=== PATIENT | female | born 1960 | race Caucasian/White ===

== ENCOUNTER 2017-06-18 11:07 | Emergency (ER) | payer BC, OTHER ==
[~2017-06-18] VITALS: Ht 170.2 cm; Wt 107.1 kg
[~2017-06-18 11:07] MED LIST: IBUP-103 PO; LEVO200T PO
[2017-06-18 11:21] VITALS: TEMP 36.6; Ht 170.2 cm; Wt 107.1 kg
[2017-06-18] MEDS ORDERED: ACET-1256 PO (11:57)
[2017-06-18] MEDS ORDERED: LEVO175T PO (11:57)
[2017-06-18 12:40] VITALS: O2SAT 96
--- NOTE | 2017-06-18 12:41 | EMERGENCY ROOM VISIT NOTE ---
History Report prepared by Danilo: Pasquale Ely Under the Supervision of: Dr. Walker Rogers M.D. First contact with patient: 11:51 Chief Complaint: SHORTNESS OF BREATH Stated Complaint: LUMP IN NECK AND DISCOMFORTED BREATHING Nursing Triage Summary: Pt reports swelling to upper chest x 1 month. "When I cough or get excited I get more sob. I don't have any trouble swallowing. When I expel a lot of air I start coughing. It just feels like a pressure where it is swollen, but it doesn't hurt. I do have pain between my shoulder blades." Hx of breast cancer in 2009. History of Present Illness The patient is a 57 year old female who presents to the Emergency Room with complaints of a worsening area of swelling to her upper mid chest that began 1 month ago. She has a past medical history of breast cancer diagnosed in 2009 with a lumpectomy that was treated with chemotherapy and radiation. Over this time, the patient noticed that there is an area to her chest that has been growing in size. She denies any pain to this area. Associated with this, the patient has been feeling short of breath as well. Whenever the patient gets excited or coughs, her shortness of breath worsens. She is also having a pain to her back in between her shoulder blades. She has not had a breast exam for the past two years and is due for one. She denies any fevers or other symptoms at this time. Source of History: patient Onset: 1 month ago Position: chest (upper mid) Symptom Intensity: moderate Quality: other (Area of swelling) Timing: worsening Associated Symptoms: + SOB, + back pain (between shoulder blades), No fevers , No chest pain Review of Systems See HPI for pertinent positives & negatives. A total of 10 systems reviewed and were otherwise negative. Past Medical & Surgical Medical Problems: (1) Hx Of Breast Malignancy (2) Hypothyroidism Family History Patient reports no known family medical history. Social History Smoking Status: Current Every Day Smoker Smokeless Tobacco Use: No Drug Use: none Current/Historical Medications Scheduled Levothyroxine Sodium (Synthroid), 175 MCG PO DAILY Lidocaine (Lidocaine), 1 PATCH TD DAILY Scheduled PRN Acetaminophen (Tylenol), 1,000 MG PO Q4 PRN for Pain Oxycodone Immediate Rel Tab (Roxicodone Ir), 1-2 TAB PO Q4H PRN for Severe Pain Allergies Coded Allergies: No Known Allergies (Unverified , 06/18/17) Physical Exam Vital Signs Date Time Temp Pulse Resp B/P (MAP) Pulse Ox O2 Delivery O2 Flow Rate FiO2 06/18/17 14:16 82 20 169/98 99 06/18/17 12:50 74 20 148/87 97 Room Air 06/18/17 12:40 96 Room Air 06/18/17 12:21 74 06/18/17 11:21 36.6 85 18 162/82 96 Room Air Physical Exam GENERAL: Patient is a healthy-appearing well-nourished female HEAD: Normocephalic atraumatic EYES: Ocular movements intact pupils equal and react to light OROPHARYNX mucous membranes are moist no exudates present no erythema or edema present NECK: Supple no nuchal rigidity CHEST: Good equal expansion. There is a palpable mass to the chest wall. Old scar tissue to the right breast. LUNGS: Clear and equal to auscultation CARDIAC: Normal S1 and S2 ABDOMEN: Soft nontender no guarding BACK: No CVA tenderness EXTREMITIES: No pain upon palpation normal muscle strength in all groups no clubbing cyanosis or edema NEURO: Patient is following commands and answering questions appropriately. Alert and oriented x3 Cranial Nerves 2-12 grossly intact Medical Decision & Procedures ER Provider Diagnostic Interpretation: Radiology results as stated below per my review and radiologist interpretation: THORACIC SPINE WITHOUT CLINICAL HISTORY: 57 years-old Female presenting with Pt c/o T6 pain, upper back pain, history cancer. TECHNIQUE: Multidetector CT of the thoracic spine was performed without the use of intravenous contrast. IV contrast: None. A dose lowering technique was used consistent with the principles of ALARA (as low as reasonably achievable). COMPARISON: None. CT DOSE (mGy.cm): The estimated cumulative dose is 638.43. FINDINGS: Tower Control Operator topogram: Unremarkable. Normal thoracic kyphosis. Osteolytic changes of T3-T5. Mild anterior vertebral body height loss of T4, which is somewhat eccentrically more significant along the right aspect of the T4 vertebral body (series 500 image 28). Remaining vertebral bodies in the thoracic spine are grossly normal in appearance without lytic change. Vertebral bodies otherwise maintain normal height and alignment. Intervertebral disc spaces preserved. No osseous neural foraminal or spinal canal narrowing. Paraspinal soft tissues within normal limits. Trace apical emphysema. Dependent changes likely atelectasis. IMPRESSION: 1. Osteolytic changes in T3-T5 are highly suspicious for metastatic disease. 2. Right eccentric anterior vertebral body height loss at T4 consistent with a pathologic compression deformity. 3. CT may underestimate the extent of metastatic disease. Further evaluation with contrast-enhanced MR of the thoracic spine could be considered. 4. No osseous neural foraminal or spinal canal narrowing. The report will be called/faxed according to standard departmental protocol. Electronically signed by: Chano Esteban M.D. 06/18/2017 1:15 PM Dictated Date/Time: 06/18/2017 1:09 PM (CHEST FOR PE) ANGIO WITH CT DOSE: 638.43 mGy.cm HISTORY: Pain. Edema. TECHNIQUE: Multiaxial CT images of the chest were performed following the intravenous administration of contrast to evaluate the pulmonary arteries. Maximal intensity projection images were also obtained. A dose lowering technique was utilized adhering to the principles of ALARA. COMPARISON STUDY: 01/19/2010 FINDINGS: The thoracic aorta is negative for aneurysm or dissection. Pulmonary arterial vasculature enhances appropriately. Large obstructive soft tissue mass eroding the bulk of the sternum from the sternomanubrial junction inferior to the inferior sternal level. This destructive mass is associated with a pericardial effusion with a maximum thickness of 11 mm. Is also associated with a soft tissue mass extending to the anterior mediastinum with dimensions are approximately 4 x 4 centimeters in terms of cross-section and extending from the superior to inferior length of the sternum. This is highly suspicious for anterior mediastinal invasion. There is moderate subcarinal adenopathy. There is skin thickening overlying the right breast. There are findings of erosive changes involving the upper thoracic spine from T3 through T6. There is a soft tissue mass around the vertebral column at this site. No definite erosive changes to the spinal canal are present. The lung parenchyma shows no significant nodularity. Subtle nodularity along the right major fissure is present. A dominant mass although not noted is not appreciated. IMPRESSION: 1. No evidence for pulmonary embolus. 2. Lungs are clear. 3. Destructive process involving the bulk of the sternum with an associated soft tissue mass extending to the anterior mediastinum. 4. Lytic changes involving the superior thoracic spine from T3 through T6 with a peripheral rind of abnormal soft tissue surrounding the involved vertebral bodies. 5. No significant involvement of the spinal canal based on CT criteria. 6. Pericardial effusion with a maximum thickness of 11 mm. 7. Skin thickening of the right breast possibly on a post therapeutic basis. 8. This appearance is most consistent with that of a metastatic process. The above report was generated using voice recognition software. It may contain grammatical, syntax or spelling errors. Electronically signed by: Marvin Marcelino M.D. 06/18/2017 1:31 PM Dictated Date/Time: 06/18/2017 1:06 PM Laboratory Results 06/18/17 11:45 Red Blood Count 4.65, Mean Corpuscular Volume 95.5, Mean Corpuscular Hemoglobin 33.5, Mean Corpuscular Hemoglobin Concent 35.1, Mean Platelet Volume 11.5, Neutrophils (%) (Auto) 70.5, Lymphocytes (%) (Auto) 21.2, Monocytes (%) (Auto) 7.1, Eosinophils (%) (Auto) 0.8, Basophils (%) (Auto) 0.2, Neutrophils # (Auto) 6.28, Lymphocytes # (Auto) 1.89, Monocytes # (Auto) 0.63, Eosinophils # (Auto) 0.07, Basophils # (Auto) 0.02 06/18/17 11:45 Test 06/18/17 11:45 06/18/17 12:48 06/18/17 12:50 White Blood Count 8.91 K/uL (4.8-10.8) Red Blood Count 4.65 M/uL (4.2-5.4) Hemoglobin 15.6 g/dL (12.0-16.0) Hematocrit 44.4 % (37-47) Mean Corpuscular Volume 95.5 fL (80-100) Mean Corpuscular Hemoglobin 33.5 pg (25-34) Mean Corpuscular Hemoglobin Concent 35.1 g/dl (32-36) Platelet Count 253 K/uL (130-400) Mean Platelet Volume 11.5 fL (7.4-10.4) Neutrophils (%) (Auto) 70.5 % Lymphocytes (%) (Auto) 21.2 % Monocytes (%) (Auto) 7.1 % Eosinophils (%) (Auto) 0.8 % Basophils (%) (Auto) 0.2 % Neutrophils # (Auto) 6.28 K/uL (1.4-6.5) Lymphocytes # (Auto) 1.89 K/uL (1.2-3.4) Monocytes # (Auto) 0.63 K/uL (0.11-0.59) Eosinophils # (Auto) 0.07 K/uL (0-0.5) Basophils # (Auto) 0.02 K/uL (0-0.2) RDW Standard Deviation 45.7 fL (36.4-46.3) RDW Coefficient of Variation 13.1 % (11.5-14.5) Immature Granulocyte % (Auto) 0.2 % Immature Granulocyte # (Auto) 0.02 K/uL (0.00-0.02) Est Creatinine Clear Calc Drug Dose 89.0 ml/min Estimated GFR () 83.4 Estimated GFR (Non- 72.0 BUN/Creatinine Ratio 16.9 (10-20) Calcium Level 9.6 mg/dl (8.5-10.1) Total Bilirubin 0.4 mg/dl (0.2-1) Aspartate Amino Transf (AST/SGOT) 21 U/L (15-37) Alanine Aminotransferase (ALT/SGPT) 27 U/L (12-78) Alkaline Phosphatase 86 U/L (45-117) Total Protein 7.8 gm/dl (6.4-8.2) Albumin 3.9 gm/dl (3.4-5.0) Globulin 3.9 gm/dl (2.5-4.0) Albumin/Globulin Ratio 1.0 (0.9-2) Bedside Hemoglobin 15.0 g/dl (12.0-16.0) Bedside Hematocrit 44 % (37-47) Bedside Sodium 140 mEq/L (135-144) Bedside Potassium 5.0 mEq/L (3.3-5.0) Bedside Chloride 102 mEq/L (101-112) Bedside Total CO2 28 mEq/l (24-31) Anion Gap 16.0 mmol/L (16-25) Bedside Blood Urea Nitrogen 27 mg/dl (7-18) Bedside Creatinine 0.9 mg/dl (0.6-1.3) Bedside Glucose (other) 98 mg/dl (70-99) Bedside Ionized Calcium (Luis Miguel) 1.18 mmol/l (1.12-1.32) Urine Color YELLOW Urine Appearance CLEAR (CLEAR) Urine pH 6.5 (4.5-7.5) Urine Specific [place] 1.010 (1.000-1.030) Urine Protein NEG (NEG) Urine Glucose (UA) NEG (NEG) Urine Ketones NEG (NEG) Urine Occult Blood NEG (NEG) Urine Nitrite NEG (NEG) Urine Bilirubin NEG (NEG) Urine Urobilinogen NEG (NEG) Urine Leukocyte Esterase NEG (NEG) Labs reviewed by ED physician. Medications Administered Medications (Trade) Dose Ordered Sig/Ledy Route Start Time Stop Time Status Last Admin Dose Admin Lidocaine (Lidoderm Patch 5%) 1 patch NOW STAT TD 06/18/17 13:57 06/18/17 13:58 DC 06/18/17 14:11 1 PATCH ECG Indication: SOB/dyspnea Rate (beats per minute): 82 Rhythm: normal sinus Findings: no acute ischemic change, no ectopy Change: Patient's electrocardiogram per my interpretation. ED Course 1151: Past medical records reviewed. The patient was evaluated in room C9. A complete history and physical examination was performed. 1350: I spoke with Dr. Parnell of Oncology at this time. They will follow up with the patient closely in the near future. 1357: Ordered Lidocaine 1 patch TD 1415: Upon reexamination the patient is resting. I discussed results and treatment plan with the patient. She verbalizes agreement and understanding. The patient is ready for discharge. Medical Decision Differential diagnosis: Etiologies such as infections, reactive airway disease, pneumonia, pneumothorax , COPD, CHF, cardiac ischemia, pulmonary embolism, musculoskeletal, gastrointestinal, as well as others were entertained. This is a 57-year-old female who presents emergency department complaining of a lump in her chest wall. The patient does have a history of breast cancer however has not had a breast exam 2 years. She was given Lidoderm patch in the emergency department. Due to the nature of the patient's history as well as her physical exam findings she was sent for CAT scan of the chest as well as the spine. This was concerning for diffuse metastatic disease. I had a discussion with the patient over the gravity of her situation and offered her admission however she wishes to be discharged home. Based on this I did discuss the case with the oncologist on-call who agreed to see the patient MARY. The patient will be given oxycodone for pain as well as Lidoderm patches. Medication Reconcilliation Current Medication List: was personally reviewed by me Blood Pressure Screening Patient's blood pressure: Elevated blood pressure Blood pressure disposition: Referred to PCP Consults Time Called: 1345 Consulting Physician: Dr. Parnell - Oncology Returned Call: We discussed the patient's case. They will follow up with the patient closely in the near future. Impression Primary Impression: Compression fracture Scribe Attestation The scribe's documentation has been prepared under my direction and personally reviewed by me in its entirety. I confirm that the note above accurately reflects all work, treatment, procedures, and medical decision making performed by me. Departure Information Dispostion Home / Self-Care Prescriptions Oxycodone Immediate Rel Tab (ROXICODONE IR) 5 Mg Tab 1-2 TAB PO Q4H Y for Severe Pain, #24 TAB Prov: Walker Rogers MD 06/18/17 Lidocaine (Lidocaine) 1 Patch Tdsy 1 PATCH TD DAILY for 30 Days, #30 PATCH Prov: Walker Rogers MD 06/18/17 Referrals Supriya Chin M.D. (PCP) Forms HOME CARE DOCUMENTATION FORM, IMPORTANT VISIT INFORMATION, School Instructions, Work Instructions Patient Instructions ED Fx Comp Vertebral, My [facility] Additional Instructions NEED close follow up with Dr Parnell's office You received narcotic or benzodiazepene medication while in the emergency room today. This is an addictive medication that may cause drowziness as well as constipation. Do not drive, operate heavy machinery, or drink alcohol under the influence of this medication. Take 1000 mg Tylenol every 6 hours Take Oxy IR for breakthrough pain You have been examined and treated today on an emergency basis only. This is not a substitute for, or an effort to provide, complete comprehensive medical care. It is impossible to recognize and treat all injuries or illnesses in a single emergency department visit. It is therefore important that you follow up closely with Dr Chin. Call as soon as possible for an appointment. Thank you for your time and consideration. I look forward to speaking with you again soon. Please don't hesitate to call us if you have any questions.
[2017-06-18] MEDS ORDERED: OPTIRAY 320 IV PRN (12:45)
[2017-06-18 13:00] LABS: ISTAT CREATININE 0.9 mg/dl (0.6-1.3); ISTAT IONIZED CALCIUM 1.18 mmol/l (1.12-1.32)
--- NOTE | 2017-06-18 13:17 | DIAGNOSTIC IMAGING REPORT ---
THORACIC SPINE WITHOUT CLINICAL HISTORY: 57 years-old Female presenting with Pt c/o T6 pain, upper back pain, history cancer. TECHNIQUE: Multidetector CT of the thoracic spine was performed without the use of intravenous contrast. IV contrast: None. A dose lowering technique was used consistent with the principles of ALARA (as low as reasonably achievable). COMPARISON: None. CT DOSE (mGy.cm): The estimated cumulative dose is 638.43. FINDINGS: Director Cardiovascular topogram: Unremarkable. Normal thoracic kyphosis. Osteolytic changes of T3-T5. Mild anterior vertebral body height loss of T4, which is somewhat eccentrically more significant along the right aspect of the T4 vertebral body (series 500 image 28). Remaining vertebral bodies in the thoracic spine are grossly normal in appearance without lytic change. Vertebral bodies otherwise maintain normal height and alignment. Intervertebral disc spaces preserved. No osseous neural foraminal or spinal canal narrowing. Paraspinal soft tissues within normal limits. Trace apical emphysema. Dependent changes likely atelectasis. IMPRESSION: 1. Osteolytic changes in T3-T5 are highly suspicious for metastatic disease. 2. Right eccentric anterior vertebral body height loss at T4 consistent with a pathologic compression deformity. 3. CT may underestimate the extent of metastatic disease. Further evaluation with contrast-enhanced MR of the thoracic spine could be considered. 4. No osseous neural foraminal or spinal canal narrowing. The report will be called/faxed according to standard departmental protocol. Electronically signed by: Chano Esteban M.D. 06/18/2017 1:15 PM Dictated Date/Time: 06/18/2017 1:09 PM
[2017-06-18 13:22] LABS: BASO % 0.2 %; BASO ABS # 0.02 K/uL (0-0.2); EOS % 0.8 %; EOS ABS # 0.07 K/uL (0-0.5); HEMATOCRIT 44.4 % (37-47); HEMOGLOBIN 15.6 g/dL (12.0-16.0); IG# 0.02 K/uL (0.00-0.02); LYMPH % 21.2 %; LYMPH ABS # 1.89 K/uL (1.2-3.4); MEAN CELL VOLUME 95.5 fL (80-100); MEAN CORPUSCULAR HEMOGLOBIN 33.5 pg (25-34); MEAN CORPUSCULAR HGB CONC 35.1 g/dl (32-36); MEAN PLATELET VOLUME 11.5 fL (7.4-10.4); MONO % 7.1 %; MONO ABS # 0.63 K/uL (0.11-0.59); NEUT % 70.5 %; NEUT ABS # 6.28 K/uL (1.4-6.5); PLATELET COUNT 253 K/uL (130-400); RED CELL DISTRIBUTION WIDTH CV 13.1 % (11.5-14.5); RED CELL DISTRIBUTION WIDTH SD 45.7 fL (36.4-46.3); WHITE BLOOD COUNT 8.91 K/uL (4.8-10.8)
[2017-06-18 13:30] LABS: ALBUMIN 3.9 gm/dl (3.4-5.0); CALCIUM 9.6 mg/dl (8.5-10.1); CREATININE 0.9 mg/dl (0.60-1.20); POTASSIUM 4.1 mmol/L (3.5-5.1)
--- NOTE | 2017-06-18 13:32 | DIAGNOSTIC IMAGING REPORT ---
(CHEST FOR PE) ANGIO WITH CT DOSE: 638.43 mGy.cm HISTORY: Pain. Edema. TECHNIQUE: Multiaxial CT images of the chest were performed following the intravenous administration of contrast to evaluate the pulmonary arteries. Maximal intensity projection images were also obtained. A dose lowering technique was utilized adhering to the principles of ALARA. COMPARISON STUDY: 01/19/2010 FINDINGS: The thoracic aorta is negative for aneurysm or dissection. Pulmonary arterial vasculature enhances appropriately. Large obstructive soft tissue mass eroding the bulk of the sternum from the sternomanubrial junction inferior to the inferior sternal level. This destructive mass is associated with a pericardial effusion with a maximum thickness of 11 mm. Is also associated with a soft tissue mass extending to the anterior mediastinum with dimensions are approximately 4 x 4 centimeters in terms of cross-section and extending from the superior to inferior length of the sternum. This is highly suspicious for anterior mediastinal invasion. There is moderate subcarinal adenopathy. There is skin thickening overlying the right breast. There are findings of erosive changes involving the upper thoracic spine from T3 through T6. There is a soft tissue mass around the vertebral column at this site. No definite erosive changes to the spinal canal are present. The lung parenchyma shows no significant nodularity. Subtle nodularity along the right major fissure is present. A dominant mass although not noted is not appreciated. IMPRESSION: 1. No evidence for pulmonary embolus. 2. Lungs are clear. 3. Destructive process involving the bulk of the sternum with an associated soft tissue mass extending to the anterior mediastinum. 4. Lytic changes involving the superior thoracic spine from T3 through T6 with a peripheral rind of abnormal soft tissue surrounding the involved vertebral bodies. 5. No significant involvement of the spinal canal based on CT criteria. 6. Pericardial effusion with a maximum thickness of 11 mm. 7. Skin thickening of the right breast possibly on a post therapeutic basis. 8. This appearance is most consistent with that of a metastatic process. The above report was generated using voice recognition software. It may contain grammatical, syntax or spelling errors. Electronically signed by: Marvin Marcelino M.D. 06/18/2017 1:31 PM Dictated Date/Time: 06/18/2017 1:06 PM
[2017-06-18 13:35] LABS: TOTAL PROTEIN 7.8 gm/dl (6.4-8.2)
[2017-06-18] MEDS ORDERED: LIDODERM (LIDOCAINE) PATCH 5% TD STA (13:57)
[2017-06-18] MEDS ORDERED: LDDP5 TD (14:00)
[2017-06-18] MEDS ORDERED: OXYC1TAB3 PO (14:00)
[2017-06-18 14:16] VITALS: BP 169/98; PULSE 82; O2SAT 99
== END 2017-06-18 14:18 | disposition home or self-care (01) ==
LOC: C.EDB 11:09 → C.EDC 14:18
DX: M84.48XA Pathological fracture, other site, initial encounter for fracture (principal); Z85.3 Personal history of malignant neoplasm of breast; E03.9 Hypothyroidism, unspecified; F17.210 Nicotine dependence, cigarettes, uncomplicated; Z79.899 Other long term (current) drug therapy

== ENCOUNTER → 2017-07-03 | Outpatient (CLI) | payer BC ==
[~2017-07-03] MED LIST changes: +ACET-1256 PO; -IBUP-103 PO; +IBUP-1450 PO; +LDDP5 TD; +LEVO175T PO; -LEVO200T PO
--- NOTE | 2017-07-03 14:22 | DIAGNOSTIC IMAGING REPORT ---
PET/CT CLINICAL HISTORY: Breast cancer. TECHNIQUE: A PET/CT was performed from the skull base through the upper thighs following intravenous injection of 11.23 mCi of F 18 FDG IV. The injection was performed at 8:29 AM on July 03, 2017 and imaging began at 9:21 AM on July 03, 2017. Unenhanced CT was performed for attenuation correction purposes and anatomic localization. COMPARISON STUDY: Chest CT and CT of the thoracic spine June 18, 2017. FINDINGS: Head and neck: Note is made of moderate FDG uptake within a nonenlarged left level 3 lymph node shown on image 43. This node measures 8 mm and has an SUV max of 5.6. A nonenlarged left supraclavicular lymph node shown on image 48 measures 1 cm and has an SUV max of 3.2. Chest: A 8 mm paratracheal node shown image 66 has an SUV max of 10.2. Extensive bony destruction of the entirety of the sternum and multiple bilateral anterior ribs is noted. This is due to an infiltrative FDG avid mass with extension into the anterior mediastinum. There is right breast asymmetric skin thickening with mild FDG uptake within SUV max of 2.4. There is also asymmetric radiotracer uptake within the right breast tissue with an SUV max of 2.4. No discrete right breast masses are identified by PET/CT. There are trace bilateral pleural effusions. A moderate-sized pericardial effusion is unchanged since chest CT of June 18, 2017. This is no significant FDG uptake. Abdomen and Pelvis: A 2.3 cm hypodense right hepatic lobe lesion has no FDG uptake. Therefore, this is probably benign. There is moderate to marked uptake projecting over the distal rectum and anus within SUV max of 7.8. A corresponding abnormality is not identified by CT although CT is decreased sensitivity for detection of mucosal lesions. Musculoskeletal: Extensive bony destruction of the entirety of the sternum and multiple bilateral anterior ribs is noted. FDG avid soft tissue is noted anterior and posterior to the sternum with mediastinal extension. SUV max of this infiltrative mass is 15.4. FDG avid lytic lesions are noted within the lower cervical and upper thoracic spine with resultant pathologic fractures of T3, T4 and T5. There is abnormal FDG uptake within the C7, T1, T2, T3, T4, T5 and T6 vertebra with an SUV max of 12.8. There is suspected epidural extension of tumor which is suboptimally assessed by PET. IMPRESSION: 1. Findings consistent with extensive FDG avid metastatic disease with bony destruction of the entirety of the sternum and multiple anterior bilateral ribs. Infiltrative tumor extends into the anterior mediastinum with associated mediastinal, supraclavicular and lower cervical lymphadenopathy consistent with mindi spread of disease. 2. Abnormal FDG uptake with multiple lytic lesions consistent with metastases within the C7-T6 vertebra with suspected epidural extension of tumor at the upper thoracic levels. 3. No change in a moderate size pericardial effusion since chest CT of June 18, 2017. This effusion has no significant FDG uptake. Trace bilateral pleural effusions. 4. Asymmetric right breast thickening with mild FDG uptake within the skin and right breast tissue. This favors postradiation change. Inflammatory breast cancer is within the differential although considered less likely given the mild degree of FDG uptake. 5. Moderate to marked focal uptake within the distal rectum and anus which is nonspecific and could be correlated with physical examination to exclude a mucosal lesion. Electronically signed by: Xavier Chin M.D. 07/03/2017 2:20 PM Dictated Date/Time: 07/03/2017 11:28 AM
== END | disposition home or self-care (01) ==
LOC: C.PET 07:38
PROVIDERS: ATTEND Radiology Radiation Oncology
DX: C50.119 Malignant neoplasm of central portion of unspecified female breast (principal); M89.8X0 Other specified disorders of bone, multiple sites; J98.59 Other diseases of mediastinum, not elsewhere classified; R59.0 Localized enlarged lymph nodes; N64.59 Other signs and symptoms in breast

== ENCOUNTER 2017-07-05 09:16 | Day surgery (SDC) | payer BC ==
[~2017-07-05] VITALS: Ht 169.5 cm; Wt 106.5 kg
[2017-07-05 09:46] VITALS: BP 157/82; PULSE 75; TEMP 36.6; O2SAT 98; Ht 169.5 cm; Wt 106.5 kg
[2017-07-05 10:33] LABS: PLATELET COUNT 236 K/uL (130-400)
[2017-07-05 10:44] LABS: PTT PATIENT 29.2 SECONDS (21.0-31.0)
[2017-07-05 11:55] VITALS: BP 132/76; PULSE 68; TEMP 36.4; O2SAT 94
--- NOTE | 2017-07-05 12:01 | Discharge Instructions ---
Discharge Instructions Procedure Procedure Date: Jul 05, 2017. Reason for visit: Sternal Mass. Discharge Discharge Date: Jul 05, 2017. Discharge Diagnosis: same Instructions Activity Recommendations: No limitations Return to School/Work: no limitations Recommended Home Diet: Resume Previous Diet Provider Instructions: ACTIVITY RECOMMENDATIONS: * Rest today. * Resume regular activity in one day. MEDICATIONS: * May take Tylenol or Ibuprofen as needed for pain. DIET: * Resume previous diet. SPECIAL CARE INSTRUCTIONS: Call your doctor if: * Temperature above 101 degrees F. * Pain not relieved by pain medicine ordered. * Increased drainage or redness from incision. * Notify your doctor with any questions or concerns. Call your doctor or go to the nearest Emergency Department if you experience: * Increased chest pain or shortness of breath. FOLLOW UP VISIT: Follow-up with Referring Physician as scheduled. Allergies Coded Allergies: No Known Allergies (Unverified , 07/05/17) Rudy You Recommendations: Call your doctor if: * Temperature above 101 degrees * Pain not relieved by pain medicine ordered * There is increased drainage or redness from any incision * You have any unanswered questions or concerns. Your Doctors Instructions noted above were prepared by provider Cb Tobias. Patient Signature Section: Patient Instructions Signature Page Linh Valladares Patient (or Guardian) Signature/Date: I have read and understand the instructions given to me by my caregivers. Caregiver/RN/Doctor Signature/Date: The above-named patient and/or guardian has received patient instructions on this date. + Original Patient Signature Page (only) stays with chart. Please make copy for patient.
--- NOTE | 2017-07-05 12:21 | DIAGNOSTIC IMAGING REPORT ---
ULTRASOUND-GUIDED FINE-NEEDLE ASPIRATION OF A STERNAL MASS HISTORY: STERNAL MASS COMPARISON: PET CT 07/03/2017. PROCEDURE: Written informed consent was obtained. The neck was prepped and draped in the usual sterile fashion. 1% lidocaine was used for local anesthesia. A total of 2 passes using a 22-gauge Sharyn needle and a 25-gauge needle were made through sternal mass under ultrasound guidance. Specimens were given to the on-site pathologist who determined adequate tissue for diagnosis. The patient tolerated the procedure well. There were no immediate complications. IMPRESSION: Successful ultrasound-guided fine-needle aspiration of a sternal mass. Electronically signed by: Cb Tobias M.D. 07/05/2017 12:20 PM Dictated Date/Time: 07/05/2017 12:19 PM
== END 2017-07-05 12:04 | disposition home or self-care (01) ==
LOC: C.ACU 09:16
PROVIDERS: ATTEND Physician Assistant Medical
DX: C79.51 Secondary malignant neoplasm of bone (principal); C50.919 Malignant neoplasm of unspecified site of unspecified female breast; Z17.0 Estrogen receptor positive status [ER+]

== ENCOUNTER 2017-08-05 05:00 | Day surgery (SDC) | payer BC ==
[2017-08-02 10:44] VITALS: BMI 36.0
[~2017-08-05] VITALS: Ht 169.5 cm; Wt 104.5 kg
[~2017-08-05 05:00] MED LIST changes: -BUPIVACAINE 0.5 % 5 MG/1 ML MPF 30ML VIAL ONE; -DXM/4 PO; -FENTANYL CITRATE INJ 50 MCG/1 ML 2 ML VIAL ONE; -HEPARIN SOD (PORCINE) 1000 UNIT/ML 10 ML VIAL ONE; -KETOROLAC TROMETHAMINE 30 MG/ML VIAL ONE; -LIDOCAINE/EPINEPHRINE 1% 20 ML VIAL ONE; -LORA-741 PO; -ONDANSETRON INJ 2 MG/ML 2 ML VIAL ONE; -OXYC1TAB3 PO; -[UNRECOGNIZED DRUG - CODE] IV
[2017-08-05] MEDS ORDERED: LORA-741 PO (05:40)
[2017-08-05] MEDS ORDERED: DXM/4 PO (05:40)
[2017-08-05] MEDS ORDERED: [UNRECOGNIZED DRUG - CODE] IV (05:40)
[2017-08-05 05:41] VITALS: BP 149/86; PULSE 83; TEMP 36.6; O2SAT 95; Ht 169.5 cm; Wt 104.5 kg
[2017-08-05] MEDS ORDERED: CEFAZOLIN 2000MG IV PUSH 15 ML IV SCH (06:00)
[2017-08-05] MEDS ORDERED: LACTATED RINGER'S 1000ML 1,000 ML IV SCH (06:00)
[2017-08-05] MEDS ORDERED: FENTANYL CITRATE INJ 50 MCG/1 ML 2 ML VIAL ONE (06:38)
[2017-08-05] MEDS ORDERED: MIDAZOLAM HCL 1 MG/ML 2ML VIAL ONE (06:39)
[2017-08-05] MEDS ORDERED: PROPOFOL IV EMULSION 10 MG/ML 20 ML VIAL IV ONE ×2 (06:43→08:21)
[2017-08-05] MEDS ORDERED: LIDOCAINE HCL 2% 2 ML VIAL (20MG/ML) ONE (06:43)
--- NOTE | 2017-08-05 06:58 | History & Physical Bridge Note ---
H&P Re-Evaluation Bridge Note: I have examined the patient, reviewed the History & Physical and in the interval since the performance of the History & Physical I have noted the following changes of clinical significance: No changes noted
[2017-08-05] MEDS ORDERED: LIDOCAINE/EPINEPHRINE 1% 20 ML VIAL TOP ONE (07:55)
[2017-08-05] MEDS ORDERED: BUPIVACAINE 0.5 % 5 MG/1 ML MPF 30ML VIAL INJ ONE (07:56)
[2017-08-05] MEDS ORDERED: HEPARIN SOD (PORCINE) 1000 UNIT/ML 10 ML VIAL IRRIG ONE (07:56)
--- NOTE | 2017-08-05 08:06 | [facility] Post Operative Brief Note ---
Immediate Operative Summary Operative Date Aug 05, 2017. Pre-Operative Diagnosis Breast Cancer Post-Operative Diagnosis Same as preop Procedure(s) Performed Insertion of Mediport with Fluoroscopy Internal Jugular Left Surgeon Respiratory Therapist Surgeon(s) None Estimated Blood Loss 6ML Findings Consistent with Post-Op Diagnosis Left IJV port placement Specimens None per surgeon Drains None Anesthesia Type MAC Complication(s) none Disposition Accompanied Pt To Recover: no Disposition: Recovery Room / PACU
--- NOTE | 2017-08-05 08:10 | [facility] Operative Report ---
Operative Report Operative Date Aug 05, 2017. Pre-Operative Diagnosis Breast Cancer Post-Operative Diagnosis Same Procedure(s) Performed Left internal jugular vein port placement with real-time ultrasound guidance and fluoroscopy Surgeon Business Intelligence Manager Surgeon(s) None Estimated Blood Loss 6ML Findings Left internal jugular vein accessed using real-time ultrasound guidance. Fluoroscopy used to confirm adequate placement of port. Specimens None per surgeon Drains None Anesthesia MAC/local Complication(s) None Disposition Recovery Room / PACU Indications 57-year-old female with metastatic breast cancer, plan for port placement. The risks of the procedure were discussed, all questions were answered, and the patient agreed to proceed with surgery as planned. Description of Procedure The patient was properly identified, consented, and taken to the operating room where she was placed in the supine position with both arms tucked and a shoulder roll placed vertically. Monitored anesthesia care was induced. SCDs and a safety belt were placed. Preoperative antibiotics were administered. The patient's chest and neck was prepped and draped in the standard sterile fashion. Surgical timeout was performed and all parties were in agreement that this was the correct patient and procedure to be performed and we continued as planned. The patient was placed in Trendelenburg position. Local anesthetic was injected along the skin incision. Using real-time ultrasound guidance the left internal jugular vein was accessed using the access needle. The wire was placed and the needle was removed. Fluoroscopy confirmed placement into the internal jugular vein extending into the superior vena cava. A transverse skin incision was made in the left chest and a pocket was created for the port. A subcutaneous tunnel was created and the catheter brought through the chest incision and into the neck incision. The dilator and peel-away sheath were inserted over the wire. The catheter was then inserted through the peel-away sheath and fluoroscopy confirmed placement into the superior vena cava. The catheter was cut and attached to the port. The port was secured into place with 3-0 Prolene sutures. A final x-ray revealed good placement of the port. The wound was irrigated and hemostasis was confirmed. The skin was closed with interrupted 3-0 Vicryl deep dermal sutures, followed by 4-0 Monocryl running subcuticular suture. Dermabond was placed over the wounds. The port was accessed and trav blood easily and flushed easily. It was flushed with heparinized saline. The patient taken to the PACU where she recovered without apparent incident. All sponge, instrument and needle counts were correct at the conclusion of the procedure. The patient tolerated the procedure well. A chest x-ray was pending at the time of dictation. I attest to the content of the Intraoperative Record and any orders documented therein. Any exceptions are noted below.
[2017-08-05] MEDS ORDERED: SODIUM CHLORIDE 0.9% 1000ML 1,000 ML IV SCH (08:11)
--- NOTE | 2017-08-05 08:11 | [facility] Operative Report ---
Operative Report Operative Date Aug 05, 2017. Pre-Operative Diagnosis Breast Cancer Surgeon Findings Real-time ultrasound guidance was used to access the left internal jugular vein. Fluoroscopy was used and interpreted throughout the procedure by the operating surgeon. 25 seconds of fluoroscopy time was utilized. I attest to the content of the Intraoperative Record and any orders documented therein. Any exceptions are noted below.
[2017-08-05] MEDS ORDERED: ONDANSETRON INJ 2 MG/ML 2 ML VIAL IV PRN (08:15)
[2017-08-05] MEDS ORDERED: MoRPHine SULFATE 2 MG/ML CARP IV PRN (08:15)
[2017-08-05] MEDS ORDERED: KETOROLAC TROMETHAMINE 30 MG/ML VIAL IV. PRN (08:15)
[2017-08-05] MEDS ORDERED: FENTANYL CITRATE INJ 50 MCG/1 ML 2 ML VIAL IV PRN (08:15)
[2017-08-05] MEDS ORDERED: EpHEDrine SULFATE INJ 50 MG/ML AMP IV PRN (08:15)
[2017-08-05] MEDS ORDERED: OXYCODONE/ACETAMINOPHEN 5-325 TAB PO PRN ×2 (08:15)
[2017-08-05] MEDS ORDERED: ATROPINE SULFATE 0.1 MG/ML 5ML SYR IV PRN (08:15)
[2017-08-05] MEDS ORDERED: MoRPHine SULFATE 4 MG/ML 1 ML CARP\\VIAL IV PRN (08:15)
[2017-08-05] MEDS ORDERED: OXYC1TAB3 PO (08:17)
--- NOTE | 2017-08-05 08:18 | Discharge Instructions ---
Discharge Instructions Date of Service Aug 05, 2017. Admission Reason for Admission: Breast Cancer Discharge Discharge Diagnosis / Problem: breast cancer Discharge Goals Goal(s): Decrease discomfort Activity Recommendations Activity Limitations: resume your previous activity Lifting Limitations: gradually increase as tolerated . Instructions / Follow-Up Instructions / Follow-Up follow up in 1-2 weeks in surgery clinic Current Hospital Diet Patient's current hospital diet: Discharge Diet Recommended Diet: Regular Diet Procedures Procedures Performed: Insertion of Mediport with Fluoroscopy Internal Jugular Left Pending Studies Studies pending at discharge: no Medical Emergencies . Who to Call and When: Medical Emergencies: If at any time you feel your situation is an emergency, please call 911 immediately. . Non-Emergent Contact Non-Emergency issues call your: Surgeon . "Provider Documentation" section prepared by Francisco Javier Agustin . [place] Drug Monitoring Program Search Results: no issues identified
--- NOTE | 2017-08-05 08:32 | Anesthesiology Progress Note ---
Anesthesia Post Op Note Date & Time Aug 05, 2017 at 08:31 Vital Signs Pain Intensity: 3 Vital Signs Past 12 Hours Date Time Temp Pulse Resp B/P (MAP) Pulse Ox O2 Delivery O2 Flow Rate FiO2 08/05/17 05:41 36.6 83 18 149/86 (107) 95 Room Air Notes Mental Status: alert / awake / arousable, participated in evaluation Pt Amnestic to Procedure: Yes Nausea / Vomiting: adequately controlled Pain: adequately controlled Airway Patency, RR, SpO2: stable & adequate BP & HR: stable & adequate Hydration State: stable & adequate Anesthetic Complications: no major complications apparent
--- NOTE | 2017-08-05 08:33 | DIAGNOSTIC IMAGING REPORT ---
CHEST ONE VIEW PORTABLE CLINICAL HISTORY: port placement COMPARISON STUDY: Chest CT June 18, 2017 and PET/CT July 03, 2017. FINDINGS: There is no pneumothorax following placement of a left internal jugular [id number]. Catheter appears intact. Tip projects over the mid SVC. There are right axillary surgical clips. Linear left basilar opacity is suggestive of atelectasis. There is no evidence for pulmonary edema. There may be a hazy left basilar opacity. Moderate enlargement of the cardiac silhouette is unchanged. IMPRESSION: 1. No pneumothorax following placement of a left internal jugular [id number]. 2. Stable enlargement of the cardiac silhouette since chest CT of June 18, 2017 which in part may be related to a pericardial effusion. 3. Mild left basilar opacity which favors atelectasis. Electronically signed by: Xavier Chin M.D. 08/05/2017 8:31 AM Dictated Date/Time: 08/05/2017 8:28 AM
[2017-08-05 08:55] VITALS: BP 124/78; PULSE 70; TEMP 36.4; O2SAT 97
[2017-08-05 09:25] VITALS: BP 140/76; PULSE 73; TEMP 36.4; O2SAT 96
== END 2017-08-05 09:40 | disposition home or self-care (01) ==
LOC: C.ACU 05:00
PROVIDERS: ATTEND Surgery
DX: C50.919 Malignant neoplasm of unspecified site of unspecified female breast (principal); E66.9 Obesity, unspecified; F41.9 Anxiety disorder, unspecified; E03.9 Hypothyroidism, unspecified; Z90.89 Acquired absence of other organs; Z98.890 Other specified postprocedural states; Z90.710 Acquired absence of both cervix and uterus; Z98.51 Tubal ligation status; F17.200 Nicotine dependence, unspecified, uncomplicated

== ENCOUNTER → 2017-08-05 | Outpatient (CLI) | payer BC ==
[~2017-08-05] MED LIST changes: +BUPIVACAINE 0.5 % 5 MG/1 ML MPF 30ML VIAL ONE; +DXM/4 PO; +FENTANYL CITRATE INJ 50 MCG/1 ML 2 ML VIAL ONE; +HEPARIN SOD (PORCINE) 1000 UNIT/ML 10 ML VIAL ONE; +KETOROLAC TROMETHAMINE 30 MG/ML VIAL ONE; -LDDP5 TD; +LIDOCAINE/EPINEPHRINE 1% 20 ML VIAL ONE; +LORA-741 PO; +MOML PO; +ONDA-170 PO; +ONDANSETRON INJ 2 MG/ML 2 ML VIAL ONE; +OXYC1TAB3 PO; +OXYC20TA50 PO; +[UNRECOGNIZED DRUG - CODE] IV
--- NOTE | 2017-08-05 11:57 | ECHOCARDIOGRAM REPORT ---
*NOTICE TO RECEIVING REPUBLICAN AGENCY This information is strictly Confidential and protected under [place] law. [place] law prohibits you from making any further disclosure of this information unless further disclosure is expressly permitted by the written consent of the person to whom it pertains or is authorized by law. A general authorization for the release of medical or other information is not sufficient for this purpose. Hospital accepts no responsibility if the information is made available to any other person, INCLUDING THE PATIENT. Interpretation Summary * Conclusions -- * Left ventricular systolic function is normal. * Moderate size pericardial effusion. * There is no diastolic compression of the right ventricle to suggest cardiac tamponade. Procedure Details * A complete two-dimensional transthoracic echocardiogram was performed (2D, M-mode, Doppler and color flow Doppler). * The study was technically difficult. * A contrast injection of Definity was performed to improve assessment of LV function. * Contrast was injected into an intravenous site in the left arm. * One vial of Definity ultrasound contrast was diluted in normal saline to a total volume of 10 ml. A total of '2' ml of solution was administered during imaging. * Lot # [id number] of Definity utilized for procedure. * Expiration date AUG 29. * The attending nurse who injected the contrast agent was ELENA FLORES, RN. Left Ventricle * The left ventricle is normal in size. * There is normal left ventricular wall thickness. * Left ventricular systolic function is normal. * Ejection Fraction = 55-60%. * Normal diastolic function * The left ventricular wall motion is normal. Right Ventricle * The right ventricle is normal in size and function. Atria * The left atrial size is normal. * Right atrial size is normal. Mitral Valve * The mitral valve is grossly normal. * Significant mitral regurgitation is absent. Tricuspid Valve * The tricuspid valve is not well visualized, but is grossly normal. * Significant tricuspid regurgitation is absent. Aortic Valve * The aortic valve is not well visualized. * No hemodynamically significant valvular aortic stenosis. * There is no significant aortic regurgitation. Pulmonic Valve * The pulmonic valve is not well visualized. Great Vessels * The aortic root is normal size. Pericardium/Pleural * Moderate size pericardial effusion. * There is no diastolic compression of the right ventricle to suggest cardiac tamponade. * There are no echocardiographic indications of cardiac tamponade. Great Vessels * Normal inferior vena cava diameter and respiratory variation suggests normal central venous pressure. MMode 2D Measurements and Calculations IVSd 1.1 cm IVSs 1.4 cm LVIDd 4.4 cm LVIDs 2.7 cm LVPWd 1.3 cm LVPWs 1.5 cm IVS/LVPW 0.84 FS 39.2 % EDV(Teich) 86.7 ml ESV(Teich) 26.1 ml EF(Teich) 69.9 % EDV(cubed) 84.0 ml ESV(cubed) 18.9 ml EF(cubed) 77.5 % % IVS thick 35.4 % % LVPW thick 20.9 % LV mass(C)d 182.4 grams LV mass(C)dI 85.9 grams/m\S\2 LV mass(C)s 134.1 grams LV mass(C)sI 63.2 grams/m\S\2 SV(Teich) 60.6 ml SI(Teich) 28.6 ml/m\S\2 SV(cubed) 65.1 ml SI(cubed) 30.7 ml/m\S\2 Ao root diam 3.3 cm Ao root area 8.5 cm\S\2 LA dimension 2.7 cm LA/Ao 0.82 LVOT diam 1.9 cm LVOT area 2.9 cm\S\2 LVAd ap4 27.6 cm\S\2 LVLd ap4 7.2 cm EDV(MOD-sp4) 87.3 ml EDV(sp4-el) 89.1 ml LVAs ap4 18.6 cm\S\2 LVLs ap4 6.7 cm ESV(MOD-sp4) 42.1 ml ESV(sp4-el) 43.6 ml EF(MOD-sp4) 51.8 % EF(sp4-el) 51.1 % LVAd ap2 22.9 cm\S\2 LVLd ap2 7.0 cm EDV(MOD-sp2) 59.9 ml EDV(sp2-el) 63.5 ml LVAs ap2 15.3 cm\S\2 LVLs ap2 6.0 cm ESV(MOD-sp2) 32.0 ml ESV(sp2-el) 33.2 ml EF(MOD-sp2) 46.6 % EF(sp2-el) 47.8 % LVLd %diff -3.76 % EDV(MOD-bp) 71.3 ml LVLs %diff -12.91 % ESV(MOD-bp) 38.3 ml EF(MOD-bp) 46.3 % SV(MOD-sp4) 45.2 ml SI(MOD-sp4) 21.3 ml/m\S\2 SV(MOD-sp2) 28.0 ml SI(MOD-sp2) 13.2 ml/m\S\2 SV(MOD-bp) 33.0 ml SI(MOD-bp) 15.6 ml/m\S\2 SV(sp4-el) 45.6 ml SI(sp4-el) 21.5 ml/m\S\2 SV(sp2-el) 30.3 ml SI(sp2-el) 14.3 ml/m\S\2 Doppler Measurements and Calculations MV E max gudelia 89.0 cm/sec MV A max gudelia 64.7 cm/sec MV E/A 1.4 MV P1/2t max gudelia 92.3 cm/sec MV P1/2t 82.9 msec MVA(P1/2t) 2.7 cm\S\2 MV dec slope 326.1 cm/sec\S\2 MV dec time 0.22 sec Ao V2 max 90.6 cm/sec Ao max PG 3.3 mmHg Ao max PG (full) 0.67 mmHg VANESSA(V,A) 2.6 cm\S\2 VANESSA(V,D) 2.6 cm\S\2 LV V1 max PG 2.6 mmHg LV V1 max 80.9 cm/sec
== END | disposition home or self-care (01) ==
LOC: C.CPL 09:42
PROVIDERS: ATTEND Internal Medicine Hematology & Oncology
DX: C50.919 Malignant neoplasm of unspecified site of unspecified female breast (principal)

== ENCOUNTER → 2017-08-20 | Outpatient (CLI) | payer BC ==
[~2017-08-20] MED LIST changes: +DXM/4 PO; +LORA-741 PO; +OXYC1TAB3 PO; +[UNRECOGNIZED DRUG - CODE] IV
[2017-08-20 13:06] VITALS: BP 126/84; PULSE 76; TEMP 36.5; O2SAT 96
--- NOTE | 2017-08-20 15:45 | Radiation Oncology Follow-Up ---
Radiation Oncology Follow-Up Date of Visit Aug 20, 2017. Reason For Visit One-month follow-up Radiation Completion Date 07/22/17 Diagnosis (1) Breast cancer metastasized to bone Status: Chronic Stage: IV Permanent Comment: Self detected right breast mass Status post biopsy June 13, 2009 Right breast cancer status post lumpectomy and sentinel lymph node biopsy Stage pT2 PN1a M0 Systemic chemotherapy with Adriamycin and Cytoxan for 6 cycles finished January 2010 Status post completion of radiation therapy March 17, 2010 received 6120 cGy Development of back and sternal pain Status post biopsy of the sternum July 05, 2017 Malignant cells consistent with metastatic adenocarcinoma of the breast Estrogen receptor positive, progesterone receptor positive, and HER-2/cachorro positive Status post completion of radiation therapy to the sternum and spine completed July 22, 2017. She received 3000 cGy. Last Edited By: Maura Doshi on Jul 29, 2017 16:25 History of Present Illness Ms. Valladares has a previous history of right breast cancer. 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 The tumor was pathologically staged as [id number]. Her treatment included a right breast lumpectomy/sentinel lymph node biopsy followed by adjuvant Adriamycin/Cytoxan chemotherapy for 6 cycles followed by adjuvant radiation therapy which completed in March 2010. The patient was then treated with an aromatase inhibitor for several months however she stopped treatment due to intolerance of side effects. More recently, the patient developed pain involving her upper back; she also noted a mass involving her anterior chest. June 18, 2017 - the patient presented to the emergency room at [facility] due to pain involving her upper back. She had imaging studies including a CT of the chest and CT of the thoracic spine. She was discharged with pain medication and referral to Dr. Vinod Parnell. June 18, 2017 - CT thorax - IMPRESSION: 1. No evidence for pulmonary embolus. 2. Lungs are clear. 3. Destructive process involving the bulk of the sternum with an associated soft tissue mass extending to the anterior mediastinum. 4. Lytic changes involving the superior thoracic spine from T3 through T6 with a peripheral rind of abnormal soft tissue surrounding the involved vertebral bodies. 5. No significant involvement of the spinal canal based on CT criteria. 6. Pericardial effusion with a maximum thickness of 11 mm. 7. Skin thickening of the right breast possibly on a post therapeutic basis. 8. This appearance is most consistent with that of a metastatic process. June 18, 2017 - CT of thoracic spine - IMPRESSION: 1. No evidence for pulmonary embolus. 2. Lungs are clear. 3. Destructive process involving the bulk of the sternum with an associated soft tissue mass extending to the anterior mediastinum. 4. Lytic changes involving the superior thoracic spine from T3 through T6 with a peripheral rind of abnormal soft tissue surrounding the involved vertebral bodies. 5. No significant involvement of the spinal canal based on CT criteria. 6. Pericardial effusion with a maximum thickness of 11 mm. 7. Skin thickening of the right breast possibly on a post therapeutic basis. 8. This appearance is most consistent with that of a metastatic process. June 20, 2017 - medical oncology consultation with Dr. Vinod Parnell from [facility]) - Dr. Parnell recommended a PET/CT scan to complete staging as well as biopsy of the sternal mass and referral to radiation oncology for consideration of palliative external beam radiation therapy to the thoracic spine. We have seen the patient in consultation discuss role of radiation therapy. As per the patient, she was tentatively scheduled to see Dr. Lyle Pineda however the patient states that the appointment has been rescheduled with the date still pending. Currently, the patient is complaining of pain in her upper back and is currently using ibuprofen for (please refer to the pain management note below). Radiation therapy was given to the sternum and thoracic spine. Treatment was completed July 22, 2017 she received 3000 cGy to each area. Interim History She has had improvement in the pain of the sternum with the radiation therapy. Today she gives a pain level of 0 out in the sternum. The pain level in her back is a 1-2. This is stable with taking OxyContin every 12 hours. Occasionally she has to take Tylenol for breakthrough. She is receiving chemotherapy every 3 weeks. She did have significant soreness of her mouth for 3-4 days. This then resolved. She used salt water gargles and brush her teeth with salt water mix. This then resolved. She had mild nausea no vomiting. She did have fatigue. At the end of treatment she had some mild radiation esophagitis. This resolved without difficulty. She also had issues with constipation and this has now resolved. She recently had a port placed. She had a large area of bruising. This is steadily improving. Allergies Coded Allergies: No Known Allergies (Unverified , 08/05/17) Home Medications Scheduled Dexamethasone (Decadron), 8 MG PO BID Docetaxel (Docetaxel), Unknown Dose IV DIRECTED Levothyroxine Sodium (Synthroid), 175 MCG PO QAM Magnesium Hydroxide (Milk Of Magnesia), 30 ML PO PRN Oxycodone Hcl (Oxycontin), 20 MG PO Q12 Scheduled PRN Acetaminophen (Tylenol), 1,000 MG PO Q4 PRN for Pain Ibuprofen (Motrin), 600 MG PO BID PRN for PRN Lorazepam (Ativan), 0.5 MG PO Q6H PRN for Anxiety Ondansetron Hcl (Zofran), 8 MG PO Q8H PRN for Nausea Review of Systems Gastrointestinal: Symptoms: Nausea, Vomiting GI Comments: Assoc. w/chemo and isn't daily; Oral: Other Oral Symptoms: Continues w/intermittent trouble swallowing, but is improved; Respiratory: Symptoms: Dry Cough, SOB With Exertion Respiratory Comments: Dry cough is less frequent than previously; Urinary: Symptoms: WNL Skin: Symptoms: Dry Desquamation Other Skin Symptoms: Dry de la ro[place]qu. upper back in area of T-spine;using moisturizer to site; Physical Exam Vital Signs Date Time Temp Pulse Resp B/P (MAP) Pulse Ox O2 Delivery O2 Flow Rate FiO2 08/20/17 13:06 36.5 76 12 126/84 96 Fatigue: None General Appearance: no apparent distress Eyes: normal inspection, EOMI ENT: normal ENT inspection, hearing grossly normal Respiratory/Chest: lungs clear, no respiratory distress, no accessory muscle use, + pertinent finding (Resolving ecchymosis around her port which extends to the upper breast. There is hyperpigmentation of the central part of the chest. This seen anteriorly in the area of her treatment of the sternum. She also has hyperpigmentation and dry skin on her back. This is improved from previous. ) Cardiovascular: regular rate, rhythm, no gallop, no murmur Extremities: no pedal edema Neurologic/Psychiatric: no motor/sensory deficits, alert, normal mood/affect Pain Management Patient Reports Pain: Yes Initial Pain Intensity: 2.0 Pain Management Plan Her pain is controlled with sustained release OxyContin and Tylenol. Laboratory Laboratory Results: not applicable Pathology Pathology Results: were reviewed, and pertinent findings noted in HPI Imaging Imaging Studies: were reviewed, and pertinent findings noted in HPI Assessment & Plan Plan: The patient also seen and examined by Dr. Cunningham. She continues on her chemotherapy. She receives this every 3 weeks. Continue regular follow-up with her primary care physician. A follow-up appointment with our office was not given. She will continue follow-up with medical oncology. She may call if she has any questions or concerns would be happy to see her. Assessment & Plan (Attending) I agree with note created by Maura Doshi PA-C. I reviewed the patient's chart and information with her. ONCOLOGY TECHNICIAN Total Time In Follow-Up I spent 20 minutes speaking to the patient in performing examination. I spent 15 minutes reviewing information and completing this note. AK Total Time (Attending) In Follow-Up I spent 15 minutes examining and counseling the patient. ONCOLOGY TECHNICIAN Copy To Supriya Chin M.D.; Vinod Parnell D.O.
== END | disposition home or self-care (01) ==
LOC: C.ONC 13:01
PROVIDERS: ATTEND Physician Assistant Medical
DX: Z08 Encounter for follow-up examination after completed treatment for malignant neoplasm (principal); Z92.3 Personal history of irradiation; Z85.3 Personal history of malignant neoplasm of breast; Z85.830 Personal history of malignant neoplasm of bone

== ENCOUNTER 2017-09-13 14:30 | Inpatient (IN) | payer BC ==
[~2017-09-13] VITALS: Ht 167.6 cm; Wt 96.3 kg
[~2017-09-13 14:30] MED LIST changes: -OPTIRAY 320 IV PRN
[2017-09-13 15:52] LABS: HEMATOCRIT 38.8 % (37-47); HEMOGLOBIN 13.5 g/dL (12.0-16.0); MEAN CORPUSCULAR HEMOGLOBIN 33.4 pg (25-34); MEAN CORPUSCULAR HGB CONC 34.8 g/dl (32-36); MEAN PLATELET VOLUME 10.3 fL (7.4-10.4); NUCLEATED RED BLOOD CELL ABS 0.03 K/uL (0-0); PLATELET COUNT 274 K/uL (130-400); RED CELL DISTRIBUTION WIDTH CV 16.6 % (11.5-14.5); WHITE BLOOD COUNT 13.33 K/uL (4.8-10.8)
[2017-09-13 16:08] LABS: CALCIUM 8.6 mg/dl (8.5-10.1); CREATININE 0.71 mg/dl (0.60-1.20); POTASSIUM 3.5 mmol/L (3.5-5.1)
[2017-09-13 16:12] LABS: BASO % 0.2 %; BASO ABS # 0.03 K/uL (0-0.2); LYMPH % 8.6 %; LYMPH ABS # 1.15 K/uL (1.2-3.4); MONO % 5.6 %; MONO ABS # 0.75 K/uL (0.11-0.59); NEUT % 76.6 %
--- NOTE | 2017-09-13 16:41 | ECHOCARDIOGRAM REPORT ---
*NOTICE TO RECEIVING [employer] This information is strictly Confidential and protected under [place] law. [place] law prohibits you from making any further disclosure of this information unless further disclosure is expressly permitted by the written consent of the person to whom it pertains or is authorized by law. A general authorization for the release of medical or other information is not sufficient for this purpose. Hospital accepts no responsibility if the information is made available to any other person, INCLUDING THE PATIENT. Interpretation Summary * Name: HITESH ELAINE Study Date: 09/13/2017 03:21 PM BP: 136/74 mmHg * Patient Location: [facility] HR: 83 * : 1960 (M/d/yyyy) Gender: Female Height: 66 in * Age: 57 yrs Ethnicity: CA Weight: 216 lb * Ordering Physician: Leonard Spears * Referring Physician: Vinod Parnell D.O. * Performed By: Quita Pineda RCS * * Reason For Study: PERICARDIAL EFFUSION * BSA: 2.1 m2 * -- Conclusions -- * Left ventricular systolic function is normal. * No regional wall motion abnormalities noted. * Ejection Fraction = 60-65%. * There is mild concentric left ventricular hypertrophy. * Moderate size pericardial effusion. * There are no echocardiographic indications of cardiac tamponade. Procedure Details * A complete two-dimensional transthoracic echocardiogram was performed (2D, M-mode, Doppler and color flow Doppler). Left Ventricle * The left ventricle is normal in size. * There is mild concentric left ventricular hypertrophy. * Left ventricular systolic function is normal. * Ejection Fraction = 60-65%. * No regional wall motion abnormalities noted. Right Ventricle * The right ventricle is normal size. * The right ventricular systolic function is normal as assessed by tricuspid annular plane systolic excursion (TAPSE) (normal >1.5 cm). Atria * The left atrial size is normal. * Right atrial size is normal. * No ASD detected; PFO is not assessed. Mitral Valve * The mitral valve anatomy is normal. * There is no mitral valve stenosis. * Significant mitral regurgitation is absent. Tricuspid Valve * The tricuspid valve anatomy is normal. * There is no tricuspid stenosis. * Significant tricuspid regurgitation is absent. Aortic Valve * The aortic valve is normal in structure and function. * No hemodynamically significant valvular aortic stenosis. * No aortic regurgitation is present. Pulmonic Valve * The pulmonary valve is not well seen, but the Doppler examination is normal without significant regurgitation or stenosis. Great Vessels * The aortic root is normal size. * The pulmonary is not well visualized. Pericardium/Pleural * Moderate size pericardial effusion. * There is no diastolic compression of the right ventricle to suggest cardiac tamponade. * There are no echocardiographic indications of cardiac tamponade. Great Vessels * Normal inferior vena cava size and collapsability with sniff indicates a normal right atrial pressure of 3 mmHg MMode 2D Measurements and Calculations IVSd 1.4 cm IVSs 2.3 cm LVIDd 4.1 cm LVIDs 2.9 cm LVPWd 1.4 cm LVPWs 1.5 cm IVS/LVPW 1.0 FS 29.5 % EDV(Teich) 73.7 ml ESV(Teich) 31.7 ml EF(Teich) 57.0 % EDV(cubed) 68.3 ml ESV(cubed) 23.9 ml EF(cubed) 65.0 % % IVS thick 68.7 % % LVPW thick 11.8 % LV mass(C)d 211.9 grams LV mass(C)dI 102.5 grams/m\S\2 LV mass(C)s 238.5 grams LV mass(C)sI 115.4 grams/m\S\2 SV(Teich) 42.0 ml SI(Teich) 20.3 ml/m\S\2 SV(cubed) 44.4 ml SI(cubed) 21.5 ml/m\S\2 ACS 2.9 cm LA dimension 3.2 cm LVOT diam 2.0 cm LVOT area 3.1 cm\S\2 LVAd ap4 26.5 cm\S\2 LVLd ap4 7.2 cm EDV(MOD-sp4) 79.7 ml EDV(sp4-el) 83.3 ml LVAs ap4 18.3 cm\S\2 LVLs ap4 6.6 cm ESV(MOD-sp4) 42.1 ml ESV(sp4-el) 43.1 ml EF(MOD-sp4) 47.1 % EF(sp4-el) 48.3 % SV(MOD-sp4) 37.5 ml SI(MOD-sp4) 18.2 ml/m\S\2 SV(sp4-el) 40.3 ml SI(sp4-el) 19.5 ml/m\S\2 Doppler Measurements and Calculations MV E max gudelia 79.3 cm/sec MV A max gudelia 69.6 cm/sec MV E/A 1.1 MV dec time 0.21 sec Ao V2 max 101.8 cm/sec Ao max PG 4.1 mmHg Ao max PG (full) -0.01 mmHg VANESSA(V,A) 3.1 cm\S\2 VANESSA(V,D) 3.1 cm\S\2 LV V1 max PG 4.2 mmHg LV V1 max 101.9 cm/sec
[2017-09-13] MEDS ORDERED: ONDANSETRON INJ 2 MG/ML 2 ML VIAL IV PRN (16:45)
[2017-09-13] MEDS ORDERED: LORAZEPAM 0.5 MG TAB PO PRN (16:45)
[2017-09-13] MEDS ORDERED: IBUPROFEN 600 MG TAB PO PRN (16:45)
[2017-09-13] MEDS ORDERED: ZOLPIDEM TARTRATE 5 MG TAB PO PRN (16:45)
[2017-09-13] MEDS ORDERED: ONDANSETRON 8 MG TAB PO PRN (16:45)
[2017-09-13] MEDS ORDERED: ACETAMINOPHEN 325 MG TAB PO PRN (16:45)
[2017-09-13] MEDS ORDERED: MAGNESIUM HYDROXIDE SUSP 30 ML UDC PO PRN (16:45)
[2017-09-13] MEDS ORDERED: ALUMINUM/MAGNESIUM/SIMETH (MAALOX MAX) 30 ML UDC PO PRN (16:45)
[2017-09-13] MEDS ORDERED: MoRPHine SULFATE 2 MG/ML CARP IV PRN (16:45)
[2017-09-13] MEDS ORDERED: POLYETHYLENE (MIRALAX) 17 GM PACK PO PRN (16:45)
[2017-09-13] MEDS ORDERED: NITROGLYCERIN 0.4 MG SL PER TAB CHARGE SL PRN (16:45)
--- NOTE | 2017-09-13 17:03 | History and Physical ---
History & Physical Date & Time of Service: September 13, 2017 at 16:50 Chief Complaint: Shortness Of Breath Primary Care Physician: Supriya Chin M.D. 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 Patient had an appointment today due to complaints of progressive SOB that started yesterday. + dyspnea at rest/exertion, orthopnea. PCP did blood work and a CTA to r/o PE- she was found to have a moderate-large pericardial effusion. +chest pressure. She follows w/ Dr. Parnell for cancer. She completed radiation treatment. Currently receiving chemotherapy every Saturday- next scheduled treatment on 09/16. Patient denies any fever, chills, sweats, lightheadedness, dizziness, vision changes, palpitations, edema, wheezing, cough, abdominal pain, nausea, vomiting, diarrhea, urinary symptoms, melena, numbness/tingling, weakness, muscle/joint pain, anxiety/depression, active bleeding, or new skin discoloration/changes. Past Medical/Surgical History Medical Problems: metastatic breast ca to bone chronic pain secondary to cancer hypothyroidism anxiety R hand surgery appendectomy hysterectomy R lumpectomy Family History Patient reports no known family medical history. Social History Smoking Status: Current Every Day Smoker Drug Use: none Marital Status: Housing status: lives with family Allergies Coded Allergies: No Known Allergies (Unverified , 09/13/17) Home Medications Scheduled Dexamethasone (Decadron), 8 MG PO BID Docetaxel (Docetaxel), Unknown Dose IV DIRECTED Levothyroxine Sodium (Synthroid), 175 MCG PO QAM Magnesium Hydroxide (Milk Of Magnesia), 30 ML PO PRN Oxycodone Hcl (Oxycontin), 20 MG PO Q12 Scheduled PRN Acetaminophen (Tylenol), 1,000 MG PO Q4 PRN for Pain Ibuprofen (Motrin), 600 MG PO BID PRN for PRN Lorazepam (Ativan), 0.5 MG PO Q6H PRN for Anxiety Ondansetron Hcl (Zofran), 8 MG PO Q8H PRN for Nausea Physical Exam Vital Signs Date Time Temp Pulse Resp B/P (MAP) Pulse Ox O2 Delivery O2 Flow Rate FiO2 09/13/17 16:00 77 20 155/72 95 Room Air 09/13/17 14:38 36.8 86 22 136/74 94 Room Air General Appearance: no apparent distress, + obese Head: normocephalic, atraumatic Eyes: normal inspection, PERRL ENT: hearing grossly normal Neck: supple, no JVD Respiratory/Chest: lungs clear, no respiratory distress, no accessory muscle use Cardiovascular: regular rate, rhythm Abdomen/GI: normal bowel sounds, non tender, soft Back: normal inspection Extremities/Musculoskelatal: no calf tenderness, no pedal edema Neurologic/Psych: alert, normal mood/affect, oriented x 3 Skin: normal color, warm/dry, no rash Diagnostics Laboratory Results Results Past 24 Hours Test 09/13/17 15:30 09/13/17 15:36 Range/Units White Blood Count 13.33 4.8-10.8 K/uL Red Blood Count 4.04 4.2-5.4 M/uL Hemoglobin 13.5 12.0-16.0 g/dL Hematocrit 38.8 37-47 % Mean Corpuscular Volume 96.0 80-100 fL Mean Corpuscular Hemoglobin 33.4 25-34 pg Mean Corpuscular Hemoglobin Concent 34.8 32-36 g/dl Platelet Count 274 130-400 K/uL Mean Platelet Volume 10.3 7.4-10.4 fL Neutrophils (%) (Auto) 76.6 % Lymphocytes (%) (Auto) 8.6 % Monocytes (%) (Auto) 5.6 % Eosinophils (%) (Auto) 0.0 % Basophils (%) (Auto) 0.2 % Neutrophils # (Auto) 10.20 1.4-6.5 K/uL Lymphocytes # (Auto) 1.15 1.2-3.4 K/uL Monocytes # (Auto) 0.75 0.11-0.59 K/uL Eosinophils # (Auto) 0.00 0-0.5 K/uL Basophils # (Auto) 0.03 0-0.2 K/uL RDW Standard Deviation 58.0 36.4-46.3 fL RDW Coefficient of Variation 16.6 11.5-14.5 % Immature Granulocyte % (Auto) 9.0 % Immature Granulocyte # (Auto) 1.20 0.00-0.02 K/uL Nucleated RBC Absolute Count (auto) 0.03 0-0 K/uL Nucleated Red Blood Cells % 0.2 % Prothrombin Time 10.7 9.0-12.0 SECONDS Prothromb Time International Ratio 1.0 0.9-1.1 Activated Partial Thromboplast Time 29.0 21.0-31.0 SECONDS Partial Thromboplastin Ratio 1.1 Sodium Level 136 136-145 mmol/L Potassium Level 3.5 3.5-5.1 mmol/L Chloride Level 105 98-107 mmol/L Carbon Dioxide Level 25 21-32 mmol/L Anion Gap 6.0 3-11 mmol/L Blood Urea Nitrogen 7 7-18 mg/dl Creatinine 0.71 0.60-1.20 mg/dl Est Creatinine Clear Calc Drug Dose 105.7 ml/min Estimated GFR () 111.1 Estimated GFR (Non- 95.9 BUN/Creatinine Ratio 9.5 10-20 Random Glucose 97 70-99 mg/dl Calcium Level 8.6 8.5-10.1 mg/dl Bedside Troponin I 0.030 0-0.045 ng/ml Diagnostic Radiology CT ANGIOGRAM OF THE CHEST CLINICAL HISTORY: Breast cancer. Dyspnea. COMPARISON STUDY: Chest CT dated 06/18/2017. Chest x-ray dated 08/05/2017. TECHNIQUE: Following the IV administration of 84 cc of Optiray 320, CT angiogram of the chest was performed from the upper abdomen to the thoracic inlet utilizing the pulmonary embolus protocol. Images are reviewed in the axial, sagittal, and coronal planes. 3-D MIPS images are created and assessed. IV contrast was administered without complication. A dose lowering technique was utilized adhering to the principles of ALARA. CT DOSE: 704.59 mGy.cm FINDINGS: Thyroid: Atrophic versus surgically absent. Thoracic aorta: The thoracic aorta is normal in caliber and demonstrates standard 3-vessel arch anatomy. No dissection is seen. A left internal jugular central venous infusion port is in place. Pulmonary vasculature: The pulmonary trunk is normal in caliber. There are no filling defects identified in main, lobar, or segmental pulmonary branches to suggest pulmonary embolus. Heart: The heart is top normal in size and there is a moderate to large pericardial effusion. Lungs and pleural spaces: Moderate to advanced emphysematous change is identified. There are small left and trace right pleural effusions. Segmental atelectasis is seen in the left lower lobe. The trachea and central airways are clear. Mediastinum: There is no mediastinal lymphadenopathy. There is soft tissue thickening anterior mediastinum, likely related to the large sternal lesion. Cristina: Clear. Axillae: Surgical clips are noted in the right axilla. There is no axillary lymphadenopathy. Upper abdomen: A 2.8 cm low-attenuation lesion is seen in the right hepatic lobe on image #[id number]. Partially visualized upper abdominal viscera is otherwise within normal limits. Skeletal structures: The skeletal structures are osteopenic. There is extensive permeative destruction of the sternum with overlying soft tissue abnormality. Similar-appearing permeative destructive change is seen involving the upper thoracic spine involving the bodies of C7-T6. There are compression deformities of T3, T4, T5. Mildly retropulsed fragments are identified at T4, and there is involvement of the posterior elements of T4. Soft tissues: The right breast is markedly edematous with dermal thickening in the resection cavity identified. IMPRESSION: 1. There is no evidence of pulmonary embolus in the main, lobar, or segmental pulmonary arteries. 2. Moderate to large pericardial effusion. 3. Emphysema. 4. There are small left and trace right pleural effusions. Segmental atelectasis is seen in the left lower lobe. 5. Extensive permeative bone destruction is seen involving the upper thoracic spine and the sternum as above. This is consistent with osseous metastatic disease and was also seen on the 06/18/2017 examination. 6. A 2.8 cm low-attenuation lesion in the right hepatic lobe is highly concerning for metastatic disease. 7. There are increasing pathological compression fractures involving T3, T4, and T5. Minimally retropulsed fragments are seen at T4. There is no CT evidence of soft tissue lesion encroaching upon the central canal. 8. Additional findings as above. Electronically signed by: Rui Cartagena M.D. 09/13/2017 1:46 PM Dictated Date/Time: 09/13/2017 1:29 PM The status of this report is Signed. Draft = Not yet reviewed or approved by Radiologist. Signed = Reviewed and approved by Radiologist Interpretation Summary * Name: HITESH ELAINE Study Date: 09/13/2017 03:21 PM BP: 136/74 mmHg * Patient Location: [facility] HR: 83 * : 1960 (M/d/yyyy) Gender: Female Height: 66 in * Age: 57 yrs Ethnicity: [place] Weight: 216 lb * Ordering Physician: Leonard Spears * Referring Physician: Vinod Parnell D.O. * Performed By: Quita Pineda RCS * * Reason For Study: PERICARDIAL EFFUSION * BSA: 2.1 m2 * -- Conclusions -- * Left ventricular systolic function is normal. * No regional wall motion abnormalities noted. * Ejection Fraction = 60-65%. * There is mild concentric left ventricular hypertrophy. * Moderate size pericardial effusion. * There are no echocardiographic indications of cardiac tamponade. Procedure Details * A complete two-dimensional transthoracic echocardiogram was performed (2D, M-mode, Doppler and color flow Doppler). Left Ventricle * The left ventricle is normal in size. * There is mild concentric left ventricular hypertrophy. * Left ventricular systolic function is normal. * Ejection Fraction = 60-65%. * No regional wall motion abnormalities noted. Right Ventricle * The right ventricle is normal size. * The right ventricular systolic function is normal as assessed by tricuspid annular plane systolic excursion (TAPSE) (normal >1.5 cm). Atria * The left atrial size is normal. * Right atrial size is normal. * No ASD detected; PFO is not assessed. Mitral Valve * The mitral valve anatomy is normal. * There is no mitral valve stenosis. * Significant mitral regurgitation is absent. Tricuspid Valve * The tricuspid valve anatomy is normal. * There is no tricuspid stenosis. * Significant tricuspid regurgitation is absent. Aortic Valve * The aortic valve is normal in structure and function. * No hemodynamically significant valvular aortic stenosis. * No aortic regurgitation is present. Pulmonic Valve * The pulmonary valve is not well seen, but the Doppler examination is normal without significant regurgitation or stenosis. Great Vessels * The aortic root is normal size. * The pulmonary is not well visualized. Pericardium/Pleural * Moderate size pericardial effusion. * There is no diastolic compression of the right ventricle to suggest cardiac tamponade. * There are no echocardiographic indications of cardiac tamponade. Great Vessels * Normal inferior vena cava size and collapsability with sniff indicates a normal right atrial pressure of 3 mmHg Impression Assessment and Plan Patient is a pleasant 57 y/o female, with PMHx of metastatic breast ca to bone, chronic pain secondary to cancer, hypothyroidism, and anxiety, who presented to the ED from PCP office due to progressive SOB x1 day. Moderate-large pericardial effusion: - Admit to tele for cardiac monitoring - Trend cardiac enzymes - O2 protocol - No evidence of cardiac tamponade on ECHO or exam - ECHO w/ preserved EF, no diastolic dysfunction, no wall abnormalities - Consult thoracic surgery, appreciate recommendations - Consult cardiology, appreciate recommendations Metastatic breast ca to bone, chronic pain secondary to cancer- T3, T4, T5 pathological compression fx on CT- follows w/ Dr. Parnell: - Continue Oxycodone BID - Radiation completed. Chemotherapy every Saturday- next scheduled treatment on 09/16- takes Decadron 8 mg BID day before/of/after treatment Hypothyroidism: Continue Synthroid Anxiety: Continue Ativan PRN DVT prophylaxis: TEDs/SCDS; hold chemical anticoagulation pending consultation Code status: LEVEL I, FULL Dispo: From home, lives w/ - CM consulted Resuscitation Status LEVEL I, FULL VTE Prophylaxis Will order VTE Prophylaxis: Yes
[2017-09-13 17:08] VITALS: O2SAT 95; Ht 167.6 cm; Wt 96.3 kg
--- NOTE | 2017-09-13 17:44 | EMERGENCY ROOM VISIT NOTE ---
History Report prepared by Danilo: Kourtney Alfonso Under the Supervision of: Dr. Leonard Spears M.D. First contact with patient: 14:59 Chief Complaint: SHORTNESS OF BREATH Stated Complaint: SHORTNESS OF BREATH History of Present Illness The patient is a 57 year old female who presents to the Emergency Room with complaints of worsening shortness of breath beginning a couple days ago. She reports her shortness of breath worsens with exertion. She reports some lightheadedness when she gets short of breath but denies any episodes of syncope or loss of consciousness. She notes some chest pressure which started yesterday and worsens with laying flat. She reports a cough which is normal for her since she was diagnosed with her breast cancer. The patient called her PCP this morning who ordered blood work and a CT chest. She denies any swelling or pain to her legs. The patient has a history of metastatic breast cancer which she is undergoing chemotherapy treatments for. She reports she finished radiation about two weeks ago. The patient has a port which has not been accessed yet. Source of History: patient Onset: a couple days ago Position: other (generalized) Quality: other (shortness of breath) Timing: worsening Modifying Factors (Worsening): exertion Associated Symptoms: + cough, + chest pain, + SOB, No LOC Review of Systems See HPI for pertinent positives & negatives. A total of 10 systems reviewed and were otherwise negative. Past Medical & Surgical Medical Problems: (1) Breast cancer metastasized to bone (2) Hx Of Breast Malignancy (3) Hypothyroidism (4) Pericardial effusion Family History Patient reports no known family medical history. Social History Smoking Status: Current Every Day Smoker Drug Use: none Current/Historical Medications Scheduled Dexamethasone (Decadron), 8 MG PO BID Docetaxel (Docetaxel), Unknown Dose IV DIRECTED Levothyroxine Sodium (Synthroid), 175 MCG PO QAM Magnesium Hydroxide (Milk Of Magnesia), 30 ML PO PRN Oxycodone Hcl (Oxycontin), 20 MG PO Q12 Scheduled PRN Acetaminophen (Tylenol), 1,000 MG PO Q4 PRN for Pain Ibuprofen (Motrin), 600 MG PO BID PRN for PRN Lorazepam (Ativan), 0.5 MG PO Q6H PRN for Anxiety Ondansetron Hcl (Zofran), 8 MG PO Q8H PRN for Nausea Allergies Coded Allergies: No Known Allergies (Unverified , 09/13/17) Physical Exam Vital Signs Date Time Temp Pulse Resp B/P (MAP) Pulse Ox O2 Delivery O2 Flow Rate FiO2 09/13/17 17:08 95 Room Air 09/13/17 16:00 77 20 155/72 95 Room Air 09/13/17 14:38 36.8 86 22 136/74 94 Room Air Physical Exam Constitutional: Vital signs reviewed. Eyes: Pupils are equal round reactive to light. Conjunctiva are noninjected. ENT: Trachea midline. Pharynx is clear without erythema or exudate. Mucous membranes are moist. Neck supple without meningeal signs. Respiratory: Clear to auscultation bilaterally. Breath sounds are equal bilaterally. Cardiovascular: No JVD. Regular rate and rhythm. No rubs or gallops. GI: Soft, nondistended and nontender. Bowel sounds are present. Musculoskeletal: No peripheral edema. No lower extremity tenderness. Integumentary: No cyanosis. Neurological: The patient is awake and alert. No focal deficits. Psychiatric: Normal affect. Medical Decision & Procedures Laboratory Results 09/13/17 15:30 Red Blood Count 4.04, Mean Corpuscular Volume 96.0, Mean Corpuscular Hemoglobin 33.4, Mean Corpuscular Hemoglobin Concent 34.8, Mean Platelet Volume 10.3, Neutrophils (%) (Auto) 76.6, Lymphocytes (%) (Auto) 8.6, Monocytes (%) (Auto) 5.6, Eosinophils (%) (Auto) 0.0, Basophils (%) (Auto) 0.2, Neutrophils # (Auto) 10.20, Lymphocytes # (Auto) 1.15, Monocytes # (Auto) 0.75, Eosinophils # (Auto) 0.00, Basophils # (Auto) 0.03 09/13/17 15:30 Test 09/13/17 15:30 09/13/17 15:36 White Blood Count 13.33 K/uL (4.8-10.8) Red Blood Count 4.04 M/uL (4.2-5.4) Hemoglobin 13.5 g/dL (12.0-16.0) Hematocrit 38.8 % (37-47) Mean Corpuscular Volume 96.0 fL (80-100) Mean Corpuscular Hemoglobin 33.4 pg (25-34) Mean Corpuscular Hemoglobin Concent 34.8 g/dl (32-36) Platelet Count 274 K/uL (130-400) Mean Platelet Volume 10.3 fL (7.4-10.4) Neutrophils (%) (Auto) 76.6 % Lymphocytes (%) (Auto) 8.6 % Monocytes (%) (Auto) 5.6 % Eosinophils (%) (Auto) 0.0 % Basophils (%) (Auto) 0.2 % Neutrophils # (Auto) 10.20 K/uL (1.4-6.5) Lymphocytes # (Auto) 1.15 K/uL (1.2-3.4) Monocytes # (Auto) 0.75 K/uL (0.11-0.59) Eosinophils # (Auto) 0.00 K/uL (0-0.5) Basophils # (Auto) 0.03 K/uL (0-0.2) RDW Standard Deviation 58.0 fL (36.4-46.3) RDW Coefficient of Variation 16.6 % (11.5-14.5) Immature Granulocyte % (Auto) 9.0 % Immature Granulocyte # (Auto) 1.20 K/uL (0.00-0.02) Nucleated RBC Absolute Count (auto) 0.03 K/uL (0-0) Nucleated Red Blood Cells % 0.2 % Prothrombin Time 10.7 SECONDS (9.0-12.0) Prothromb Time International Ratio 1.0 (0.9-1.1) Activated Partial Thromboplast Time 29.0 SECONDS (21.0-31.0) Partial Thromboplastin Ratio 1.1 Anion Gap 6.0 mmol/L (3-11) Est Creatinine Clear Calc Drug Dose 105.7 ml/min Estimated GFR () 111.1 Estimated GFR (Non- 95.9 BUN/Creatinine Ratio 9.5 (10-20) Calcium Level 8.6 mg/dl (8.5-10.1) Bedside Troponin I 0.030 ng/ml (0-0.045) Laboratory results as reviewed by me. ED Course 1502: The patient was evaluated in room C8. A complete history and physical exam was performed. 1510: I spoke with Dr. Elias of [facility] Cardiology. We discussed the patient and her results. He will have someone come in to do an echocardiogram on the patient. 1607: I spoke with Dr. Martinez of [facility] Hospitalist Service. We discussed the patient and her results. The patient will be further evaluated by him. 1619: I spoke with Dr. Pineda of Thoracic Surgery. We discussed the patient and her results. He said he is available should she need a pericardial window. 1650: reviewed the patient's echocardiogram and he does not feel any acute surgical intervention is necessary. Medical Decision This is a 57-year-old female presents with dyspnea on exertion and a pericardial effusion. I did perform a limited focused review of portions of the patient's old chart on the electronic medical record. The patient had a chest CT today which showed no PE but a moderate to large pericardial effusion with small pleural effusions. I did evaluate the patient as noted above. Patient is presenting with dyspnea on exertion. She had a CT today which showed a pericardial effusion. She has no signs of cardiac tamponade. IV access was established. The patient was placed on a continuous landscape painter. I did order and review the patient's blood work as noted in the electronic medical record. I did discuss the case with Dr. Elias of cardiology. A stat echocardiogram was performed which showed no signs of tamponade. I did discuss the case with Dr. Pindea of cardiothoracic surgery who evaluated the patient here. She did not require any acute surgical intervention at this time. I did discuss case with Dr. Martinez who admitted the patient. Medication Reconcilliation Current Medication List: was personally reviewed by me Blood Pressure Screening Patient's blood pressure: Elevated blood pressure Blood pressure disposition: Referred to PCP Consults Time Called: 1507 Consulting Physician: [facility] Returned Call: [address] [facility] We discussed the patient and her results. He will have someone come in to do an echocardiogram on the patient Additional Consults: Time Called: 1603 Consulted Physician: [facility] Returned Call: 1607 Additional Comments: I spoke with Dr. Martinez of [facility]. We discussed the patient and her results. The patient will be further evaluated by him. Time Called: 1616 Consulted Physician: Dr. Pineda Thoracic Surgery Returned Call: 1619 Additional Comments: I spoke with Dr. Pineda of Thoracic Surgery. We discussed the patient and her results. He said he is available should she need a pericardial window. Impression Primary Impression: Pericardial effusion Additional Impression: Dyspnea on exertion Scribe Attestation The scribe's documentation has been prepared under my direct and personally reviewed by me in its entirety. I confirm that the note above accurately reflects all work, treatment, procedures, and medical decision making performed by me. Departure Information Dispostion Being Evaluated By Hospitalist Referrals Supriya Chin M.D. (PCP) Patient Instructions [facility] Problem Qualifiers
[2017-09-13 17:46] VITALS: O2SAT 95
[2017-09-13 18:12] VITALS: BP 144/74; PULSE 74; TEMP 36.4; O2SAT 95
[2017-09-13] MEDS ORDERED: SODIUM CHLORIDE 0.9% 1000ML 1,000 ML IV SCH (18:30)
[2017-09-13] MEDS ORDERED: NURSING VERBAL MED ORDER ONE ×2 (18:45→23:15)
[2017-09-13 20:05] VITALS: BP 133/64; PULSE 74; TEMP 36.7; O2SAT 92
[2017-09-13] MEDS: OXYCODONE HCL 20 MG TABCR (OXYCONTIN) PO SCH (20:52)
[2017-09-13 23:07] VITALS: BP 143/68; PULSE 74; TEMP 36.7; O2SAT 93
[2017-09-13 23:32] LABS: CKMB 1.2 ng/ml (0.5-3.6)
[2017-09-14 04:04] VITALS: BP 129/82; PULSE 76; TEMP 36.7; O2SAT 92
[2017-09-14] MEDS ORDERED: LEVOTHYROXINE 175 MCG TAB PO SCH (06:00)
[2017-09-14 06:35] VITALS: BP 125/65; PULSE 74; TEMP 36.6; O2SAT 95
[2017-09-14 07:10] LABS: HEMATOCRIT 37.8 % (37-47); HEMOGLOBIN 12.8 g/dL (12.0-16.0); MEAN CELL VOLUME 96.7 fL (80-100); MEAN CORPUSCULAR HEMOGLOBIN 32.7 pg (25-34); MEAN CORPUSCULAR HGB CONC 33.9 g/dl (32-36); MEAN PLATELET VOLUME 9.8 fL (7.4-10.4); PLATELET COUNT 262 K/uL (130-400); RED CELL DISTRIBUTION WIDTH CV 17.1 % (11.5-14.5); RED CELL DISTRIBUTION WIDTH SD 59.6 fL (36.4-46.3); WHITE BLOOD COUNT 11.25 K/uL (4.8-10.8)
[2017-09-14 07:50] LABS: BLOOD UREA NITROGEN 6 mg/dl (7-18); CALCIUM 7.9 mg/dl (8.5-10.1); CARBON DIOXIDE 27 mmol/L (21-32); GLUCOSE 85 mg/dl (70-99); POTASSIUM 3.7 mmol/L (3.5-5.1); SODIUM 140 mmol/L (136-145)
[2017-09-14 08:00] LABS: CKMB < 0.5 ng/ml (0.5-3.6)
[2017-09-14] MEDS: OXYCODONE HCL 20 MG TABCR (OXYCONTIN) PO SCH (08:18)
--- NOTE | 2017-09-14 11:19 | Discharge Instructions ---
Discharge Instructions Date of Service September 14, 2017. Admission Reason for Admission: Pericardial Effusion Discharge Discharge Diagnosis / Problem: dyspnea, pericardial and pleural effusion Discharge Goals Goal(s): Diagnostic testing, Therapeutic intervention Activity Recommendations Activity Limitations: as noted below Lifting Limitations: gradually increase as tolerated . Current Hospital Diet Patient's current hospital diet: Regular Diet Discharge Diet Recommended Diet: Regular Diet Pending Studies Studies pending at discharge: no Medical Emergencies . Who to Call and When: Medical Emergencies: If at any time you feel your situation is an emergency, please call 911 immediately. . Non-Emergent Contact Non-Emergency issues call your: Primary Care Provider, Credit Reporting Clerk Call Non-Emergent contact if: temperature is above 101, your pain is unusual for you . . "Provider Documentation" section prepared by Leonard Phillips. .
[2017-09-14 11:25] VITALS: BP 125/65; PULSE 74; TEMP 36.6; O2SAT 95
--- NOTE | 2017-09-14 13:44 | SURGICAL CONSULTATION ---
DATE OF CONSULTATION: 09/14/2017 REASON FOR CONSULTATION: Pericardial effusion. HISTORY OF PRESENT ILLNESS: This is an unfortunate 57-year-old female who presented with back pain a few months ago and was found to have widely metastatic breast cancer. She has been treated with radiation to her spine, which was the etiology of her pain as she had marked spine metastases. She has had some symptoms of chest discomfort and pressure and became more short of breath. She underwent a CT scan, which ruled out a pulmonary embolism; however, she was found to have a pericardial effusion. Echocardiogram did not reveal any signs of diastolic collapse. She has widely metastatic disease and is being treated by Dr. Vinod Parnell from Medical Oncology and Dr. Martha Cunningham from Radiation Oncology. I have been asked to comment on this pericardial effusion from a thoracic surgery standpoint. PAST MEDICAL HISTORY: 1. Widely metastatic breast cancer. 2. Hypothyroidism. 3. Anxiety. PAST SURGICAL HISTORY: 1. Right lumpectomy. 2. Hysterectomy. 3. Appendectomy. 4. 2, para 2. 5. Right hand surgery. MEDICATIONS (at home): 1. Decadron. 2. OxyContin. 3. Synthroid. 4. Docetaxel. FAMILY MEDICAL HISTORY: Her two children and five grandchildren are healthy. ALLERGIES: No known drug allergies. SOCIAL HISTORY: The patient lives with her . She continues to smoke cigarettes and smokes a pack a day now and has been smoking for almost 40 years. 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 Her family is very supportive. REVIEW OF SYSTEMS: The patient denies any abdominal pain. She has had no fever or chills or productive cough. She has no cough, no hemoptysis. She had no diarrhea, nausea or vomiting. She has had no hematemesis or hematochezia. She denies dysuria. She has had no neurologic signs or amaurosis fugax or focal weakness. She has had no auditory or visual loss. She has had no skin breakdown, although she does have some skin changes with radiation on her chest and back. She denies palpitations. She has had no lower extremity swelling or joint swelling. PHYSICAL EXAMINATION: GENERAL: This is a pleasant, conversant female who appears her stated age of 57. She stands 5 feet 6 inches tall and weighs 212 pounds. She has alopecia with chemotherapy. HEENT: She wears glasses. Her extraocular movements are intact. Her pupils are equally round and reactive. Her sclerae are anicteric. Her sclerae are a bit pale. NECK: Supple. She has a left infraclavicular port for an IJ stick that goes over and the catheter goes over her clavicle. I do not really palpate any lymphadenopathy. She has no carotid bruits. She has no neck vein distention. HEART: She has no pulsus paradoxus on my exam this morning. She has crisp heart tones. She has has decreased breath sounds on the left. EXTREMITIES: She has good perfusion in the lower extremities. ABDOMEN: Obese, but soft and nontender. SKIN: She has some skin peeling in her palms. NEUROLOGIC: She is completely intact. She has no focal deficits. She is awake, alert, and oriented. DATA REVIEW: I reviewed her CT scan, she does have a pericardial effusion. She also has a left pleural effusion, which is rather small, but she has had some collapse of the left lower lobe and has some elevation of left hemidiaphragm. ASSESSMENT AND PLAN: 1. Pericardial effusion with no evidence of tamponade. I have discussed his case with the patient as well as Dr. Phillips. We would hold off offering her an intervention now, but I would recommend repeating an echocardiogram in the future. HERB
--- NOTE | 2017-09-14 14:45 | CARDIOLOGY CONSULTATION ---
DATE OF CONSULTATION: 09/14/2017 PERTINENT HISTORY: Ms. Valladares is a 57-year-old white female admitted yesterday because of complaints of exertional dyspnea and recognition of a kgnnlanc-[id number] pericardial effusion on a CAT scan. Of note, the patient follows with Dr. Mccormick in the outpatient setting. The patient claims she was in her usual state of marginal health until approximately one month ago. She began to note some exertional dyspnea. The patient felt that her dyspnea has progressed over the last two to three days. However, the patient feels it may be related to allergies. She is also concerned that her sternal metastases could be the culprit of her symptoms. Review of her record notes a moderate-sized pericardial effusion on a CT scan performed back in June. Is also noted bony metastases in the thoracic spine and the majority of the sternum. An echocardiogram was performed in July and interpreted by Dr. Mccormick. This revealed normal left ventricular systolic function with an ejection fraction of 55-60%. There is a moderate-sized pericardial effusion without evidence of tamponade. Because of her complaints of shortness of breath, her primary care physician ordered a CT scan of the chest yesterday. This revealed a mpopqnir-[id number] pericardial effusions along with her bony metastases as noted above. Dr. Spears contacted me and we decided to perform an echocardiogram to further assess her pericardial effusion. This was felt to be moderate in size on her echocardiogram yesterday. Currently, the patient is resting comfortably in bed and without complaints. She is anxious for hospital discharge. PAST MEDICAL HISTORY: 1. Right breast carcinoma - invasive ductal - 2009. 2. Status post Adriamycin/Cytoxan - 2009. 3. Radiation therapy - 2009. 4. 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 5. Moderate pericardial effusion - 06/2017. 6. Hypothyroidism. 7. History of gastric ulcer. 8. Migraine headaches. 9. Anxiety. 10. Left internal jugular port - 07/2017. 11. Appendectomy. 12. JENNIFER/BSO. 13. Tubal ligation. 14. Emphysema. MEDICATIONS: 1. Synthroid 0.175 mg daily. 2. OxyContin 20 mg q. 12 hour. ALLERGIES: None. SOCIAL HISTORY: The patient is and lives with her . Smokes one pack of cigarettes daily. Uses alcohol rarely. FAMILY HISTORY: No early coronary artery disease. REVIEW OF SYSTEMS: A 10-point review of systems was negative except for that described above. PHYSICAL EXAMINATION: GENERAL: This is a well-developed, well-nourished white female lying supine in bed without complaints. VITAL SIGNS: Blood pressure is 125/65 with a regular pulse of 74. Respiratory rate is 18. The patient is afebrile at 36.6 degrees Celsius. Saturation is 95% on room air. HEENT: Negative. NECK: Supple with full carotid upstrokes. There are no carotid bruits. Jugular venous pressure is flat at 90 degrees. There is no thyromegaly. CARDIOVASCULAR: Reveals a regular rhythm with normal S1, S2. No S3, S4, or murmurs are noted. LUNGS: Clear without rales, rhonchi, or wheezes. ABDOMEN: Obese without bruits. EXTREMITIES: Reveal intact radial pulses bilaterally. There is no peripheral edema. DATA: CBC notes hemoglobin 12.8, hematocrit 37.8, white count 11.2, and a platelet count of 262,000. Electrolytes note a sodium of 140, potassium 3.70, chloride 107, bicarbonate 27, BUN 6, creatinine 0.6, glucose 85. Initial troponin is 0.078 with followup value of 0.077. CK-MB fractions are 1.2 and less than 0.5. EKG notes sinus rhythm with low voltage throughout and a complete right bundle branch block. CT scan of the chest noted no pulmonary embolism and a kkrtilut-wb-ewaoal pericardial effusion. There were sternal and thoracic spine metastases. Emphysematous changes were noted. Echocardiogram performed yesterday noted normal left ventricular systolic function with mild LVH and a moderate-sized pericardial effusion. There are no echocardiographic signs of cardiac tamponade. The study was unchanged from one performed in July of this year. IMPRESSION: Ms. Valladares was admitted with progressive exertional dyspnea. I do not feel that this is completely related to her pericardial effusion. That effusion was noted on the CT scan in June and again on an echocardiogram in July. It has not changed in size and there are no echocardiographic signs of tamponade. Was evaluated by Dr. Pineda who is not anxious to perform a pericardial window. The patient, , and I agree. PLAN: 1. Two-step trial to see if oxygen indicated. 2. No further cardiac testing at this time. 3. Further recommendations pending her clinical course. [facility]
--- NOTE | 2017-09-14 18:57 | Discharge Summary ---
Discharge Summary Date of Service September 14, 2017. Discharge Summary Admission Date: September 13, 2017 at 17:01 Discharge Date: September 14, 2017 Discharge Disposition: Home Principal Diagnosis: chronic pericardial and pleural effusion Problems/Secondary Diagnoses: (1) Hypothyroidism Status: Chronic Medication Reconciliation Continued Medications: Acetaminophen (Tylenol) 500 Mg Tab 1000 MG PO Q4 PRN for Pain Dexamethasone (Decadron) 4 Mg Tab 8 MG PO BID, TAB Take day before, day of, and day after chemotherapy. Docetaxel (Docetaxel) 20 Mg/2 Ml Inj Unknown Dose IV DIRECTED Ibuprofen (Motrin) 600 Mg Tab 600 MG PO BID PRN for PRN, #15 TAB Levothyroxine Sodium (Synthroid) 175 Mcg Tab 175 MCG PO QAM Lorazepam (Ativan) 0.5 Mg Tab 0.5 MG PO Q6H PRN for Anxiety, TAB Magnesium Hydroxide (Milk Of Magnesia) 30 Ml Susp 30 ML PO PRN, ML Ondansetron Hcl (Zofran) 8 Mg Tab 8 MG PO Q8H PRN for Nausea, TAB Oxycodone Hcl (Oxycontin) 20 Mg Tab 20 MG PO Q12, TAB Discharge Exam Review of Systems: Constitutional: No fever, No chills Cardiovascular: No chest pain, No orthopnea, No edema Abdomen: No pain, No nausea, No diarrhea Musculoskeletal: No joint pain, No muscle pain Neurologic: No memory loss, No paralysis, No numbness/tingling Psychiatric: No depression symptoms, No anhedonism, No anxiety Physical Exam: General Appearance: WD/WN, + mild distress Eyes: normal inspection, sclerae normal Neck: supple, no JVD Respiratory/Chest: chest non-tender, lungs clear Cardiovascular: regular rate, rhythm, normal peripheral pulses Abdomen / GI: normal bowel sounds, non tender, soft Neurologic/Psychiatric: alert, oriented x 3 Skin: normal color, warm/dry Hospital Course Patient is a pleasant 57 y/o female, with PMHx of metastatic breast ca to bone, chronic pain secondary to cancer, hypothyroidism, and anxiety, who presented to the ED from PCP office due to progressive SOB x1 day. Found to have large pericardial effusion, after review seems to be chronic without compressive physiology. sob seems to be more mediated from allergic rhinitis Moderate-large pericardial effusion: No evidence of cardiac tamponade on ECHO w/ preserved EF, no diastolic dysfunction, no wall abnormalities - Consult thoracic surgery has confered with Dr Elias and no intervention is planned, discussion of cholicine will not start unless worsened symptoms Metastatic breast ca to bone, chronic pain secondary to cancer- T3, T4, T5 pathological compression fx on CT- follows w/ Dr. Parnell: Oxycodone BID, - Radiation completed. Chemotherapy every Saturday- next scheduled treatment on 09/16- takes Decadron 8 mg BID day before/of/after treatment Hypothyroidism: Continue Synthroid Code status: LEVEL I, FULL Total Time Spent: Greater than 30 minutes This includes examination of the patient, discharge planning, medication reconciliation, and communication with other providers. Discharge Instructions Please refer to the electronic Patient Visit Report (Discharge Instructions) for additional information.
== END 2017-09-14 12:05 | disposition home or self-care (01) | DRG 315 ==
LOC: C.EDB 14:31 → C.2E 17:01 → ENRESERV 17:06
PROVIDERS: ADMIT Hospitalist; ATTEND Hospitalist
DX: I31.3 Pericardial effusion (noninflammatory) (principal); C79.51 Secondary malignant neoplasm of bone; J90 Pleural effusion, not elsewhere classified; C50.919 Malignant neoplasm of unspecified site of unspecified female breast; G89.3 Neoplasm related pain (acute) (chronic); E03.9 Hypothyroidism, unspecified; F41.9 Anxiety disorder, unspecified; F17.200 Nicotine dependence, unspecified, uncomplicated; Z79.52 Long term (current) use of systemic steroids

== ENCOUNTER → 2017-09-13 | Outpatient (CLI) | payer BC ==
[~2017-09-13] MED LIST changes: +OPTIRAY 320 IV PRN; -OXYC1TAB3 PO
--- NOTE | 2017-09-13 13:48 | DIAGNOSTIC IMAGING REPORT ---
CT ANGIOGRAM OF THE CHEST CLINICAL HISTORY: Breast cancer. Dyspnea. COMPARISON STUDY: Chest CT dated 06/18/2017. Chest x-ray dated 08/05/2017. TECHNIQUE: Following the IV administration of 84 cc of Optiray 320, CT angiogram of the chest was performed from the upper abdomen to the thoracic inlet utilizing the pulmonary embolus protocol. Images are reviewed in the axial, sagittal, and coronal planes. 3-D MIPS images are created and assessed. IV contrast was administered without complication. A dose lowering technique was utilized adhering to the principles of ALARA. CT DOSE: 704.59 mGy.cm FINDINGS: Thyroid: Atrophic versus surgically absent. Thoracic aorta: The thoracic aorta is normal in caliber and demonstrates standard 3-vessel arch anatomy. No dissection is seen. A left internal jugular central venous infusion port is in place. Pulmonary vasculature: The pulmonary trunk is normal in caliber. There are no filling defects identified in main, lobar, or segmental pulmonary branches to suggest pulmonary embolus. Heart: The heart is top normal in size and there is a moderate to large pericardial effusion. Lungs and pleural spaces: Moderate to advanced emphysematous change is identified. There are small left and trace right pleural effusions. Segmental atelectasis is seen in the left lower lobe. The trachea and central airways are clear. Mediastinum: There is no mediastinal lymphadenopathy. There is soft tissue thickening anterior mediastinum, likely related to the large sternal lesion. Cristina: Clear. Axillae: Surgical clips are noted in the right axilla. There is no axillary lymphadenopathy. Upper abdomen: A 2.8 cm low-attenuation lesion is seen in the right hepatic lobe on image #[id number]. Partially visualized upper abdominal viscera is otherwise within normal limits. Skeletal structures: The skeletal structures are osteopenic. There is extensive permeative destruction of the sternum with overlying soft tissue abnormality. Similar-appearing permeative destructive change is seen involving the upper thoracic spine involving the bodies of C7-T6. There are compression deformities of T3, T4, T5. Mildly retropulsed fragments are identified at T4, and there is involvement of the posterior elements of T4. Soft tissues: The right breast is markedly edematous with dermal thickening in the resection cavity identified. IMPRESSION: 1. There is no evidence of pulmonary embolus in the main, lobar, or segmental pulmonary arteries. 2. Moderate to large pericardial effusion. 3. Emphysema. 4. There are small left and trace right pleural effusions. Segmental atelectasis is seen in the left lower lobe. 5. Extensive permeative bone destruction is seen involving the upper thoracic spine and the sternum as above. This is consistent with osseous metastatic disease and was also seen on the 06/18/2017 examination. 6. A 2.8 cm low-attenuation lesion in the right hepatic lobe is highly concerning for metastatic disease. 7. There are increasing pathological compression fractures involving T3, T4, and T5. Minimally retropulsed fragments are seen at T4. There is no CT evidence of soft tissue lesion encroaching upon the central canal. 8. Additional findings as above. Electronically signed by: Rui Cartagena M.D. 09/13/2017 1:46 PM Dictated Date/Time: 09/13/2017 1:29 PM
== END | disposition home or self-care (01) ==
LOC: C.CTS 13:10
PROVIDERS: ATTEND Internal Medicine Hematology & Oncology
DX: C50.911 Malignant neoplasm of unspecified site of right female breast (principal); I31.3 Pericardial effusion (noninflammatory); J43.9 Emphysema, unspecified; J98.11 Atelectasis; C79.51 Secondary malignant neoplasm of bone; K76.9 Liver disease, unspecified

== ENCOUNTER 2017-12-25 07:35 | Day surgery (SDC) | payer SELFPAY ==
[~2017-12-25] VITALS: Ht 167.6 cm; Wt 86.4 kg
[~2017-12-25 07:35] MED LIST changes: +CLIN300C2 PO; +CLINDAMYCIN IV 900 MG in DEXTROSE 5% 50ML IV SCH; +DENOINJ; -DXM/4 PO; +FULV250I2; +LACTATED RINGER'S 1000ML 1,000 ML IV SCH
[2017-12-25 08:12] VITALS: BP 134/99; PULSE 89; TEMP 36.4; O2SAT 97; Ht 167.6 cm; Wt 86.4 kg
[2017-12-25] MEDS ORDERED: LIDOCAINE HCL 2% 2 ML VIAL (20MG/ML) ONE (09:15)
[2017-12-25] MEDS ORDERED: PROPOFOL IV EMULSION 10 MG/ML 20 ML VIAL ONE ×2 (09:15→10:41)
[2017-12-25] MEDS ORDERED: FENTANYL CITRATE INJ 50 MCG/1 ML 2 ML VIAL ONE ×2 (09:16→12:17)
[2017-12-25] MEDS ORDERED: MIDAZOLAM HCL 1 MG/ML 2ML VIAL ONE (09:16)
[2017-12-25] MEDS ORDERED: EpHEDrine SULFATE INJ 50 MG/ML AMP IV PRN (10:00)
[2017-12-25] MEDS ORDERED: ATROPINE SULFATE 0.1 MG/ML 5ML SYR IV PRN (10:00)
[2017-12-25] MEDS ORDERED: BUPIVACAINE 0.5 % 5 MG/1 ML PF 10ML VIAL ONE (10:04)
[2017-12-25] MEDS ORDERED: LIDOCAINE/EPINEPHRINE 1% 20 ML VIAL ONE (10:04)
[2017-12-25] MEDS ORDERED: ONDANSETRON INJ 2 MG/ML 2 ML VIAL ONE (11:04)
--- NOTE | 2017-12-25 11:10 | [facility] Post Operative Brief Note ---
Immediate Operative Summary Operative Date Dec 25, 2017. Pre-Operative Diagnosis Infected Venous Access Port Post-Operative Diagnosis Same as preoperative. Procedure(s) Performed Removal of Infected Venous Access Port, wound debridement Surgeon Dr. Haley School Childcare Attendant Surgeon(s) Shruthi Fernandes PA-C Estimated Blood Loss 4ML Findings Consistent with Post-Op Diagnosis Specimens PERMANENT: A.) Explanted Venous Access Port MICROBIOLOGY: 1.) Venous Access Port Exudate Drains None Anesthesia Type MAC Complication(s) none Disposition Accompanied Pt To Recover: no Disposition: Recovery Room / PACU
--- NOTE | 2017-12-25 11:16 | [facility] Operative Report ---
Operative Report Operative Date Dec 25, 2017. Pre-Operative Diagnosis Infected Venous Access Port Post-Operative Diagnosis Same Procedure(s) Performed Removal of tunneled central venous catheter with subcutaneous port, wound debridement Surgeon Dr. Haley [employer] Surgeon(s) Shruthi Fernandes PA-C Estimated Blood Loss 4ML Findings Purulent drainage. Port removed. Sharp debridement of fibrinous rind and slough performed using scalpel, less than 20 cm. Skin partially closed with interrupted 3-0 nylon sutures, 4 x 4 wet-to-dry dressing placed. Specimens PERMANENT: A.) Explanted Venous Access Port MICROBIOLOGY: 1.) Venous Access Port Exudate Drains None Anesthesia MAC/local Complication(s) None Disposition Recovery Room / PACU Indications 57-year-old female with metastatic breast cancer and chronic port infection, plan for port removal. The risks of the procedure were discussed, all questions were answered, and the patient agreed to proceed with surgery as planned. Description of Procedure The patient was properly identified, consented, and taken to the operating room where she was placed in the supine position. Monitored anesthesia care was induced. SCDs and a safety belt were placed. Preoperative antibiotics were administered. The patient's left chest and neck were prepped and draped in the standard sterile fashion. Surgical timeout was performed and all parties were in agreement that this was the correct patient and procedure to be performed and we continued as planned. Local anesthetic was injected along the skin incision. A transverse incision was made through the old incision overlying the port and deepened down through the subcutaneous tissue with electrocautery. The sutures holding the port in place were cut, the port was removed, and passed off the table as specimen. The port was examined and was intact. The tip was sent for culture. The fibrinous rind and slough surrounding the port was sharply dissected. The wound was irrigated and hemostasis was confirmed. The skin was partially closed with interrupted 3-0 nylon simple sutures medially. A moistened 4 x 4 gauze was then inserted into the wound bed. Sterile dressing was placed over the wound. The patient was extubated in the operating room and taken to the PACU where she recovered without apparent incident. All sponge, instrument and needle counts were correct at the conclusion of the procedure. The patient tolerated the procedure well. The physician's assistant teacher primary was present and scrubbed for the entire to the case. She was essential in positioning the patient, prepping and draping, retraction and exposure, removal of the port, debridement of the wound, closure the incision, and placement of the dressings. I attest to the content of the Intraoperative Record and any orders documented therein. Any exceptions are noted below.
[2017-12-25] MEDS ORDERED: SODIUM CHLORIDE 0.9% 1000ML 1,000 ML IV SCH (11:18)
[2017-12-25] MEDS ORDERED: CLIN300C2 PO (11:22)
[2017-12-25] MEDS ORDERED: ALBUTEROL 0.083% NEBU SOLN 3 ML VIAL INH STA (11:29)
[2017-12-25] MEDS ORDERED: ONDANSETRON INJ 2 MG/ML 2 ML VIAL IV PRN ×2 (11:30→14:45)
[2017-12-25] MEDS ORDERED: OXYCODONE/ACETAMINOPHEN 5-325 TAB PO PRN ×2 (11:30)
--- NOTE | 2017-12-25 11:44 | Discharge Instructions ---
Discharge Instructions Date of Service Dec 25, 2017. Admission Reason for Admission: Infected Venous Access Port, Right Breast Cancer Discharge Discharge Diagnosis / Problem: Infected Venous Access Port, Right Breast Cancer Discharge Goals Goal(s): Decrease discomfort, Improve function Activity Recommendations Activity Limitations: as noted below Lifting Limitations: until after follow-up appointment Exercise/Sports Limitations: until after follow-up appointment May Resume Sexual Activity: when tolerated Shower/Bathe: tomorrow Driving or Machine Use: resume 1 day after discharge . Instructions / Follow-Up Instructions / Follow-Up You have been prescribed an additional 7 day prescription for Clindamycin- please start this prescription when you finish your current regimen of Clindamycin. Please follow-up with Dr. Haley in the General Surgery Clinic located at [address] [place] [address] [place] tomorrow, December 26, 2017 at 9:45AM. If you are unable to make this appointment please call our office at [phone]. Current Hospital Diet Patient's current hospital diet: Discharge Diet Recommended Diet: Regular Diet Procedures Procedures Performed: Removal of Infected Venous Access Port, wound debridement Pending Studies Studies pending at discharge: no Medical Emergencies . Who to Call and When: Medical Emergencies: If at any time you feel your situation is an emergency, please call 911 immediately. . Non-Emergent Contact Non-Emergency issues call your: Primary Care Provider, Surgeon Call Non-Emergent contact if: temperature is above 101.5, your pain is not controlled, wound has increased drainage, wound has increased redness . "Provider Documentation" section prepared by Shruthi Fernandes. .
[2017-12-25 11:53] VITALS: PULSE 97; O2SAT 97
[2017-12-25] MEDS ORDERED: FENTANYL CITRATE INJ 50 MCG/1 ML 2 ML VIAL IV PRN (12:30)
--- NOTE | 2017-12-25 12:46 | DIAGNOSTIC IMAGING REPORT ---
CHEST ONE VIEW PORTABLE CLINICAL HISTORY: 57 years-old Female presenting with PACU film. TECHNIQUE: Portable upright AP view of the chest was obtained. COMPARISON: 08/05/2017. FINDINGS: Interval removal of the right internal jugular Mediport. Cardiac silhouette remains enlarged though is obscured along the left heart border. Moderate left pleural effusion and left basilar opacity. This is worsened from prior. Right lung and pleural space clear. No pneumothorax. Osseous structures normal. Surgical clips noted in the right axilla. IMPRESSION: 1. Interval development of a moderate left pleural effusion with extensive left lung atelectasis. 2. Cardiomegaly. Electronically signed by: Chano Esteban M.D. 12/25/2017 12:44 PM Dictated Date/Time: 12/25/2017 12:43 PM
--- NOTE | 2017-12-25 14:19 | Progress Note ---
Progress Note Date of Service Dec 25, 2017. Progress Note 57 y/o female s/p infected port removal and wound debridement. Has known smoking history and left pleural effusion. Was in respiratory distress in PACU and required multiple nebulizer breathing treatments. Now sitting up in bed satting 94% on 2L NC, in no distress, anxious to go home. C Xray with increased left pleural effusion and atelectasis. Will consult hospitalist for overnight obs. May benefit from thoracentesis.
[2017-12-25] MEDS ORDERED: CLINDAMYCIN IV 600 MG in DEXTROSE 5% 50ML 50 ML IV SCH (14:45)
[2017-12-25] MEDS ORDERED: ZOLPIDEM TARTRATE 5 MG TAB PO PRN (14:45)
[2017-12-25] MEDS ORDERED: POLYETHYLENE (MIRALAX) 17 GM PACK PO PRN (14:45)
[2017-12-25] MEDS ORDERED: LORAZEPAM 0.5 MG TAB PO PRN (14:45)
[2017-12-25] MEDS ORDERED: ALUMINUM/MAGNESIUM/SIMETH (MAALOX MAX) 30 ML UDC PO PRN (14:45)
[2017-12-25] MEDS ORDERED: ACETAMINOPHEN 325 MG TAB PO PRN (14:45)
[2017-12-25] MEDS ORDERED: MAGNESIUM HYDROXIDE SUSP 30 ML UDC PO PRN (14:45)
[2017-12-25] MEDS ORDERED: MoRPHine SULFATE 2 MG/ML CARP IV PRN (14:45)
[2017-12-25] MEDS ORDERED: METHYLPREDNISOLONE IV 40 MG in SYRINGE 0 ML IV SCH (14:45)
[2017-12-25] MEDS ORDERED: ALBUTEROL 0.083% NEBU SOLN 3 ML VIAL INH PRN (14:45)
[2017-12-25] MEDS ORDERED: IBUPROFEN 600 MG TAB PO PRN (14:45)
--- NOTE | 2017-12-25 15:20 | Anesthesiology Progress Note ---
Anesthesia Post Op Note Date & Time Dec 25, 2017 at 15:16 Vital Signs Pain Intensity: 3 Vital Signs Past 12 Hours Date Time Temp Pulse Resp B/P (MAP) Pulse Ox O2 Delivery O2 Flow Rate FiO2 12/25/17 14:45 80 15 126/78 94 Room Air 1 12/25/17 14:30 83 20 130/76 88 Room Air 12/25/17 14:15 83 23 118/88 92 Room Air 12/25/17 14:00 80 22 129/64 93 Nasal Cannula 1 12/25/17 13:45 81 19 124/73 93 Nasal Cannula 1 12/25/17 13:30 77 20 131/77 94 Nasal Cannula 2 12/25/17 13:15 81 15 115/86 94 Nasal Cannula 2 12/25/17 13:00 81 20 113/76 93 Nasal Cannula 2 12/25/17 12:50 81 20 127/62 93 Nasal Cannula 2 12/25/17 12:40 84 18 125/78 94 Nasal Cannula 2 12/25/17 12:30 79 12 117/85 93 Nasal Cannula 2 12/25/17 12:20 82 14 114/74 93 Nasal Cannula 2 12/25/17 12:10 84 18 99/45 93 Nasal Cannula 2 12/25/17 12:00 83 17 115/83 93 Nasal Cannula 2 12/25/17 11:53 97 18 97 Mask 9.0 12/25/17 11:50 80 19 143/74 99 Nebulizer 10 12/25/17 11:40 80 17 129/76 96 Oxymask 10 12/25/17 11:30 87 16 119/90 94 Oxymask 10 12/25/17 11:20 36.0 83 11 115/73 90 Oxymask 10 12/25/17 08:12 36.4 89 18 134/99 97 Room Air Notes Mental Status: alert / awake / arousable, participated in evaluation Pt Amnestic to Procedure: Yes Nausea / Vomiting: adequately controlled Pain: adequately controlled Airway Patency, RR, SpO2: stable & adequate BP & HR: stable & adequate Hydration State: stable & adequate Anesthetic Complications: no major complications apparent Pt had significant respiratory distress for a few minutes upon arrival in PACU.Pt was treated and is stable.Pt had CXR and showed moderate pleural effusion and significant atelectasis of the left lung. Pt discharged to care of surgical team and medicine team.
--- NOTE | 2017-12-25 15:30 | History and Physical ---
History & Physical Date & Time of Service: Dec 25, 2017 at 15:15 Chief Complaint: Infected Venous Access Port, Right Breast Cancer Primary Care Physician: Supriya Chin M.D. History of Present Illness Source: patient, hospital records, other 57 y/o F Hx metastatic breast CA, hypothyroidism, tobacco use. Presented to same day surgery for removal of an infected port with wound debridement. She became excessively SOB during the procedure. She improved with nebulizer treatments and 02. A CXR was obtained revealing a moderate L pleural effusion. Past Medical/Surgical History 1) Pericardial effusion 2) Hypothyroidism 3) Metastatic breast CA - mets to spina and sternum - currently treated with Docetaxel 4) Smoker Family History Patient reports no known family medical history. Father due to COPD complication Social History She lives with her who is cognitively impaired due to cardiac arrest. Smokes 1 pack QD. Does not drink. Smoking Status: Current Every Day Smoker Drug Use: none Marital Status: Housing status: lives with family Allergies Coded Allergies: No Known Allergies (Unverified , 12/20/17) Home Medications Scheduled Clindamycin Hcl (Cleocin), 300 MG PO TID Clindamycin Hcl (Cleocin), 300 MG PO TID Denosumab (Xgeva), UD Docetaxel (Docetaxel), Unknown Dose IV DIRECTED Fulvestrant (Faslodex), UD Levothyroxine Sodium (Synthroid), 175 MCG PO QAM Magnesium Hydroxide (Milk Of Magnesia), 30 ML PO PRN Oxycodone Hcl (Oxycontin), 20 MG PO Q12 Scheduled PRN Acetaminophen (Tylenol), 1,000 MG PO Q4 PRN for Pain Ibuprofen (Motrin), 600 MG PO BID PRN for PRN Lorazepam (Ativan), 0.5 MG PO Q6H PRN for Anxiety Ondansetron Hcl (Zofran), 8 MG PO Q8H PRN for Nausea Review of Systems Constitutional: No fever, No chills, No sweats Eyes: No worsening of vision ENT: No hearing loss, No unusual epistaxis, No nasal symptoms Respiratory: + wheezing, + shortness of breath, + dyspnea on exertion, + dyspnea at rest, No cough, No sputum Cardiovascular: No chest pain Abdomen: No pain, No nausea, No vomiting Musculoskeletal: + problem reported (Chronic bone pain due to mets), No joint pain Genitourinary - Female: No dysuria Neurologic: No memory loss Psychiatric: No depression symptoms Endocrine: No fatigue Integumentary: + rash (Wound infection at port site) Physical Exam Vital Signs Date Time Temp Pulse Resp B/P (MAP) Pulse Ox O2 Delivery O2 Flow Rate FiO2 12/25/17 14:45 80 15 126/78 94 Room Air 1 12/25/17 14:30 83 20 130/76 88 Room Air 12/25/17 14:15 83 23 118/88 92 Room Air 12/25/17 14:00 80 22 129/64 93 Nasal Cannula 1 12/25/17 13:45 81 19 124/73 93 Nasal Cannula 1 12/25/17 13:30 77 20 131/77 94 Nasal Cannula 2 12/25/17 13:15 81 15 115/86 94 Nasal Cannula 2 12/25/17 13:00 81 20 113/76 93 Nasal Cannula 2 12/25/17 12:50 81 20 127/62 93 Nasal Cannula 2 12/25/17 12:40 84 18 125/78 94 Nasal Cannula 2 12/25/17 12:30 79 12 117/85 93 Nasal Cannula 2 12/25/17 12:20 82 14 114/74 93 Nasal Cannula 2 12/25/17 12:10 84 18 99/45 93 Nasal Cannula 2 12/25/17 12:00 83 17 115/83 93 Nasal Cannula 2 12/25/17 11:53 97 18 97 Mask 9.0 12/25/17 11:50 80 19 143/74 99 Nebulizer 10 12/25/17 11:40 80 17 129/76 96 Oxymask 10 12/25/17 11:30 87 16 119/90 94 Oxymask 10 12/25/17 11:20 36.0 83 11 115/73 90 Oxymask 10 12/25/17 08:12 36.4 89 18 134/99 97 Room Air General Appearance: WD/WN, + pertinent finding (Alopecia is present) Head: normocephalic Eyes: normal inspection ENT: normal ENT inspection Neck: supple, no JVD Respiratory/Chest: chest non-tender, + pertinent finding (No air entry L to mid /upper lung) Cardiovascular: regular rate, rhythm, no edema, no gallop Abdomen/GI: normal bowel sounds, non tender, soft Back: normal inspection, no CVA tenderness Extremities/Musculoskelatal: normal inspection Neurologic/Psych: clipper automatic II-XII nml as tested, no motor/sensory deficits, alert, oriented x 3 Skin: + pertinent finding (R chest wound is bandaged) Diagnostics Laboratory Results Results Past 24 Hours Test 12/25/17 14:43 Range/Units Microbiology Results 12/25/17 Gram Stain, Received Pending 12/25/17 Bacterial Culture, Received Pending Diagnostic Radiology CXR: 1. Interval development of a moderate left pleural effusion with extensive leftlung atelectasis. 2. Cardiomegaly. Impression Assessment and Plan 57 y/o F Hx metastatic breast CA, hypothyroidism, tobacco use. Presented to same day surgery for removal of an infected port with wound debridement. She became excessively SOB during the procedure. She improved with nebulizer treatments and 02. A CXR was obtained revealing a moderate L pleural effusion. 1) Acute SOB - L pleural effusion - SOB may have been related to position during procedure in addition to her effusion. Bronchospasm may have also occurred as wheezing was reported initially. The pt wished to be DCd, however, she was unable to maintain an adequate sat without supplemental 02. We have consulted thoracic surgery for therapeutic and diagnostic drainage of her effusion. We have provided nebs and 02 overnight. She may require home 02 if sat does not improve and a CTA should likely be considered. She denies a prior diagnosis of COPD. 2) CA - can f/u with her oncologist - due for additional chemo in 1 week 3) Hypothyroidism - cont Synthroid 4) Duly rebuked for continued smoking - will require help with cessation prior to DC. Full code - Heparin prophylaxis - total time for this admit including review of labs, meds, records, imaging - discussion with pt and anesthesiologist following procedure - 35 min Advanced Directives Existing Living Will: No Existing Power of Treatment Manager: No Resuscitation Status VTE Prophylaxis Will order VTE Prophylaxis: Yes
[2017-12-25] MEDS ORDERED: IV FLUIDS COMPLETED PRN (16:00)
[2017-12-25 16:15] LABS: HEMATOCRIT 42.1 % (37-47); HEMOGLOBIN 13.4 g/dL (12.0-16.0); MEAN CELL VOLUME 98.4 fL (80-100); MEAN CORPUSCULAR HEMOGLOBIN 31.3 pg (25-34); MEAN CORPUSCULAR HGB CONC 31.8 g/dl (32-36); MEAN PLATELET VOLUME 10.1 fL (7.4-10.4); PLATELET COUNT 235 K/uL (130-400); RED CELL DISTRIBUTION WIDTH CV 18.4 % (11.5-14.5); RED CELL DISTRIBUTION WIDTH SD 66.2 fL (36.4-46.3); WHITE BLOOD COUNT 11.33 K/uL (4.8-10.8)
[2017-12-25 16:45] VITALS: BP 117/68; PULSE 67; TEMP 36.7; O2SAT 97
[2017-12-25 16:49] LABS: CALCIUM 8.3 mg/dl (8.5-10.1); CREATININE 0.69 mg/dl (0.60-1.20); POTASSIUM 3.1 mmol/L (3.5-5.1)
[2017-12-25 17:15] VITALS: BP 100/69; PULSE 88; O2SAT 98
[2017-12-25] MEDS ORDERED: OXYCODONE HCL 20 MG TABCR (OXYCONTIN) PO SCH (21:00)
[2017-12-25] MEDS ORDERED: ALBUT/IPRATROP 3MG/0.5MG NEB 3 ML VIAL INH SCH (21:00)
--- NOTE | 2017-12-25 23:00 | SURGICAL CONSULTATION ---
DATE OF CONSULTATION: 12/25/2017 REASON FOR CONSULTATION: Left pleural effusion. HISTORY OF PRESENT ILLNESS: Linh Valladares is a 57-year-old female who has a history of right breast cancer, is undergoing treatment for her metastatic disease. She developed an infection of her port site and had this removed by Dr. Ji Haley today. She became very short of breath and was found to have what was felt to be a moderate left pleural effusion. I was asked to see this patient as she is insistent on going home. Her has some cognitive impairment due to a cardiac arrest and apparent cerebral anoxia and she states that she must be at home with him. Saturations are low. As I talked to her today, it could be seen that she was requiring oxygen. I looked at an old CT scan and quite frankly over the last 3 months, her x-ray has not really changed. 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 Her diaphragm was quite high on the left side. I think this is most of over same with atelectasis, although there may be a small amount of fluid. I did perform a bedside ultrasound and she has very little in the way of fluid on the left. I do not think tapping this is going to help. I had a long discussion with the patient and her . PAST MEDICAL HISTORY: 1. Pericardial effusion in the past. 2. Hypothyroidism. 3. Metastatic breast cancer with bony metastases. 4. Active cigarette smoker. 5. Infection of port. PAST SURGICAL HISTORY: 1. Insertion of left infraclavicular port. 2. Removal of left infraclavicular port and packing it open. 3. Appendectomy. 4. Hysterectomy. 5. 2, para 2. 6. Right hand surgery. 7. Right lumpectomy. MEDICATIONS: Please see chart. ALLERGIES: No known drug allergies. SOCIAL HISTORY: The patient has a good support system. She has 2 children, 5 grandchildren. She lives with her ; however, he has cerebral anoxia and has cognitive dysfunction and requires management. She smokes a pack of cigarettes a day. REVIEW OF SYSTEMS: The patient continued to lose weight. She had radiation and has had chemotherapy for her bone metastases. She has had no skin breakdown. She does have some skin changes. She has had no palpitations. She has been very short of breath for the last month. She denies productive cough. She has no dysuria or GI symptoms. She has had no visual or auditory symptoms. She denies any neurologic symptoms. PHYSICAL EXAMINATION: GENERAL: This is a 5 feet 6 inch female who has lost about 20 pounds since I saw her 3 months ago. I saw her for a pericardial effusion; however, I did not feel it need to be addressed as it was small and she had no evidence of diastolic collapse. HEENT: Her extraocular movements are intact. Her pupils are equally round and reactive. She does wear glasses. Sclerae are anicteric. She has dressings over her left infraclavicular area. NECK: I detect no neck vein distention or lymphadenopathy. She has no carotid bruits. HEART: She actually has a pretty good heart tones upon auscultation. LUNGS: She does have decreased breath sounds on the left. ABDOMEN: Soft, obese, and nontender. EXTREMITIES: She has trace edema of her lower extremities. NEUROLOGIC: She is completely intact. ASSESSMENT AND PLAN: Left pleural effusion. This is very small. She certainly does not appear to have symptoms of a pericardial effusion. I think her left hemidiaphragm is elevated and probably is paralyzed. She was insistent on going home; however, she was hypoxic. We went ahead and got the respiratory therapist to do a 2-step and she immediately desaturated to 82% after getting out of bed. We have got her set up for some oxygen and we are having case management work on that. I will be glad to see her back at any time.
[2017-12-26] MEDS ORDERED: HEPARIN SOD 5000 UNIT/0.5 ML CARP SQ SCH (09:00)
[2017-12-26] MEDS ORDERED: LEVOTHYROXINE 175 MCG TAB PO SCH (09:00)
== END 2017-12-25 17:45 | disposition home or self-care (01) ==
LOC: C.ACU 07:35 → ENRESERV 15:39 → CANBEDREQ 17:17 → C.ACU 17:45
PROVIDERS: ATTEND Surgery
DX: T80.219A Unspecified infection due to central venous catheter, initial encounter (principal); Y83.8 Other surgical procedures as the cause of abnormal reaction of the patient, or of later complication, without mention of misadventure at the time of the procedure; J90 Pleural effusion, not elsewhere classified; C50.919 Malignant neoplasm of unspecified site of unspecified female breast; C79.51 Secondary malignant neoplasm of bone; I10 Essential (primary) hypertension; E03.9 Hypothyroidism, unspecified; F17.210 Nicotine dependence, cigarettes, uncomplicated; E66.9 Obesity, unspecified; Z68.30 Body mass index [BMI] 30.0-30.9, adult; Z90.49 Acquired absence of other specified parts of digestive tract; Z90.710 Acquired absence of both cervix and uterus; Z90.722 Acquired absence of ovaries, bilateral